=== PATIENT | male | born 1985 | race Caucasian/White ===

== ENCOUNTER 2018-08-20 17:09 | Emergency (ER) | payer MEDICAID, SELFPAY ==
[2018-08-20 17:21] VITALS: BP 153/80; PULSE 84; RESP 16; TEMP 36.8; O2SAT 98
--- NOTE | 2018-08-20 18:15 | W.ED.GENAD ---
Discharge Plan Disposition Patient Disposition: HOME Condition: Improving Discharge Details Chief Complaint: EyeProblem Clinical Impression: Corneal abrasion, left Primary Care Provider: Kristen Noland ED Provider: Chuck Roach Home Meds and New Rx's Prescriptions: No Action No Known Home Meds RF: 0 Discharge Instructions Instructions: Corneal Abrasion (ED) Additional Instructions: Erythromycin ophthalmic ointment to left eye 4 times daily. [facility] for a follow-up appointment in 2-3 days time to ensure healing of your left corneal abrasion which was in the inferior portion of your axis of vision. Plan to the emergency department for any acute concern Medical Decision Making 33-year-old male presents with left eye foreign object. Was given topical anesthetic, the eye was irrigated and then examined with a slit lamp on the floor seen. Negative Shiloh sign. Metallic foreign object removed with resultant small corneal abrasion. I will place on erythromycin ointment. 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 HPI General Mode of arrival: ambulatory. Date/Time Provider Initiated Documentation: 08/20/18 17:16. Limitations to Documentation: no limitations. Information obtained by: patient. History of Present Illness 33 year old M presents to the emergency department with the chief complaint of Left eye foreign body, described as moderate, Quality is described as aching, and is localized to the left (eye). Patient reports no radiation. Patient started experiencing this minute(s) and it has been constant. No relieving factors improve symptom(s), No exacerbating factors reported . Patient notes no other symptoms.. Patient did receive the following treatments prior to arrival, none Related Data Home Medications Medication Instructions Recorded Confirmed Unknown [No Known Home Meds] 08/20/18 08/20/18 Allergies Allergy/AdvReac Type Severity Reaction Status Date / Time No Known Allergies Allergy Unverified 05/13/16 10:46 General Stated Complaint: EyeProblem FRANTZ: 4 Review of Systems Review of Systems 6 systems reviewed and otherwise - [facility] Social History Smoking/Tobacco Use Status: Current every day Exam Narrative Exam Narrative: GEN: awake, alert, oriented 3. Pleasant, well groomed, interactive. HEAD: Normocephalic, atraumatic ENT: Mucous membranes moist, oropharynx unremarkable, External ear exam unremarkable EYES: PERRL, EOMI. left eye has a metallic foreign object embedded in the cornea and the inferior portion of the axis of vision. Negative Shiloh sign NECK: Full ROM, no MIKE, no menigismus CARDIOVASCULAR: RRR, no murmur, rub florentin. 2+ Rad pulse bilateral Neuro: Grossly normal neurologic exam, conversant, interactive. Psych: Speech fluent, thoughts congruent, affect normal Course Vital Signs Temperature 36.8 C 08/20/18 17:21 Pulse 84 08/20/18 17:21 Respiratory Rate 16 08/20/18 17:21 Blood Pressure 153/80 H 08/20/18 17:21 Pulse Oximetry 98 08/20/18 17:21 Temperature 36.8 C 08/20/18 17:21 Temperature Source Skin 08/20/18 17:21 Pulse 84 08/20/18 17:21 Respiratory Rate 16 08/20/18 17:21 Respiratory Effort 08/20/18 17:27 Blood Pressure 153/80 H 08/20/18 17:21 Blood Pressure Position Sitting 08/20/18 17:21 Pulse Oximetry 98 08/20/18 17:21 Oxygen Delivery Method Room Air 08/20/18 17:21 Oxygen Flow Rate 0 08/20/18 17:21 Pain Level 0 08/20/18 17:21
--- NOTE | 2018-08-20 18:20 | ED.GENADUL_ITS ---
Discharge Plan Disposition Patient Disposition: HOME Condition: Improving Discharge Details Chief Complaint: EyeProblem Clinical Impression: Corneal abrasion, left Primary Care Provider: Kristen Noland ED Provider: Chuck Roach Home Meds and New Rx's Prescriptions: No Action No Known Home Meds RF: 0 Discharge Instructions Instructions: Corneal Abrasion (ED) Additional Instructions: Erythromycin ophthalmic ointment to left eye 4 times daily. [facility] call [facility] for a follow-up appointment in 2-3 days time to ensure healing of your left corneal abrasion which was in the inferior portion of your axis of vision. Plan to the emergency department for any acute concern Medical Decision Making 33-year-old male presents with left eye foreign object. Was given topical anesthetic, the eye was irrigated and then examined with a slit lamp on the floor seen. Negative Hsiloh sign. Metallic foreign object removed with resultant small corneal abrasion. I will place on erythromycin ointment. 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 HPI General Mode of arrival: ambulatory . Date/Time Provider Initiated Documentation: 08/20/18 17:16 . Limitations to Documentation: no limitations . Information obtained by: patient . History of Present Illness 33 year old M presents to the emergency department with the chief complaint of Left eye foreign body, described as moderate, Quality is described as aching, and is localized to the left (eye). Patient reports no radiation. Patient started experiencing this minute(s) and it has been constant. No relieving factors improve symptom(s), No exacerbating factors reported . Patient notes no other symptoms.. Patient did receive the following treatments prior to arrival, none Related Data Home Medications Medication Instructions Recorded Confirmed Unknown [No Known Home Meds] 08/20/18 08/20/18 Allergies Allergy/AdvReac Type Severity Reaction Status Date / Time No Known Allergies Allergy Unverified 05/13/16 10:46 General Stated Complaint: EyeProblem FRANTZ: 4 Review of Systems Review of Systems 6 systems reviewed and otherwise - [facility] Social History Smoking/Tobacco Use Status: Current every day Exam Narrative Exam Narrative: GEN: awake, alert, oriented 3. Pleasant, well groomed, interactive. HEAD: Normocephalic, atraumatic ENT: Mucous membranes moist, oropharynx unremarkable, External ear exam unremarkable EYES: PERRL, EOMI. left eye has a metallic foreign object embedded in the cornea and the inferior portion of the axis of vision. Negative Shiloh sign NECK: Full ROM, no MIKE, no menigismus CARDIOVASCULAR: RRR, no murmur, rub florentin. 2+ Rad pulse bilateral Neuro: Grossly normal neurologic exam, conversant, interactive. Psych: Speech fluent, thoughts congruent, affect normal Course Vital Signs Temperature 36.8 C 08/20/18 17:21 Pulse 84 08/20/18 17:21 Respiratory Rate 16 08/20/18 17:21 Blood Pressure 153/80 H 08/20/18 17:21 Pulse Oximetry 98 08/20/18 17:21 Temperature 36.8 C 08/20/18 17:21 Temperature Source Skin 08/20/18 17:21 Pulse 84 08/20/18 17:21 Respiratory Rate 16 08/20/18 17:21 Respiratory Effort 08/20/18 17:27 Blood Pressure 153/80 H 08/20/18 17:21 Blood Pressure Position Sitting 08/20/18 17:21 Pulse Oximetry 98 08/20/18 17:21 Oxygen Delivery Method Room Air 08/20/18 17:21 Oxygen Flow Rate 0 08/20/18 17:21 Pain Level 0 08/20/18 17:21
[2018-08-20] MEDS: Fluorescein STRIPS 100/BOX 1 MG OP (18:23)
[2018-08-20] MEDS: Erythromycin Ophth Oint 3.5 GM TUBE OP (18:24)
[2018-08-20] MEDS: Tetracaine 0.5% 4 ML BTL OP (18:24)
[2018-08-20] MEDS: Balanced Salt Solution 15 ML BTL OP (18:24)
== END 2018-08-20 18:31 | disposition home or self-care (01) ==
PROVIDERS: Emergency Provider Emergency Medicine; PCP Family Medicine
DX: S05.02XA Injury of conjunctiva and corneal abrasion without foreign body, left eye, initial encounter (principal); T15.02XA Foreign body in cornea, left eye, initial encounter
CPT/HCPCS: 65222

== ENCOUNTER 2022-08-25 08:07 | Emergency (ER) | payer MEDICAID, SELFPAY ==
[2022-08-25 08:13] VITALS: BP 156/98; PULSE 80; RESP 18; TEMP 37.2; O2SAT 99
--- NOTE | 2022-08-25 08:42 | W.ED.GENAD ---
Discharge Plan Disposition Patient Disposition: Home Condition: Stable Discharge Details Clinical Impression: Acute torticollis Primary Care Provider: Kristen Noland ED Provider: Jeronimo Win Home Meds and New Rx's Prescriptions: New cyclobenzaprine 10 mg tablet 10 mg PO TID PRN (Reason: muscle spasm) Qty: 20 0RF Discharge Instructions Instructions: Spasmodic Torticollis (ED) Additional Instructions: Please allow 8 hours before taking any further ibuprofen/Motrin due to the pain shot that you received today. You may continue to take [id number] pain medication including acetaminophen and ibuprofen as discussed otherwise. Please be cautious with the muscle relaxer as this may make you sleepy or drowsy so no operating heavy machinery, driving vehicles, using firearms while on this medication. If you develop any new or worsening symptoms please return to the emergency department otherwise follow-up with your primary care provider for reassessment if not improving in the next week. Referrals: Kristen Noland MD [Primary Care Provider] - 1 week (If not improving) Discharge Data Discharge Date/Time-TO BE ENTERED AT DEPARTURE: 08/25/22 09:04 Medical Decision Making Patient presenting to the emergency department for chief complaint of neck pain. Patient states muscular type injury that occurred a couple years ago after lifting something heavy and going up a ladder. He reports that he must of slept on his neck wrong on Friday and has had pain and difficulty rotating his head to the left since. He does state some radiation of pain into the shoulder blade and arm but denies any numbness or tingling, weakness, or other symptoms. Physical exam shows muscular tenderness to the lower cervical spine and around the scapular area. No vertebral body tenderness, negative Spurling, no extremity weakness no loss of sensation or sensory deficit. I do not feel that advanced imaging is needed on an emergency basis so we will treat patient's pain with NSAIDs and Flexeril. Did recommend that patient see primary care provider if not improving or to return for any new or significant worsening of symptoms. After discussion of diagnosis and plan of care patient has no further needs, questions, or concerns and states clear understanding to return to the emergency department for any worsening symptoms. This documentation was generated using [employer] system, please disregard any oddities of phrase or misspellings. HPI General Mode of arrival: ambulatory. Date/Time Provider Initiated Documentation: 08/25/22 08:16. Limitations to Documentation: no limitations. Information obtained by: patient and RN notes reviewed. History of Present Illness 37 year old M presents to the emergency department with the chief complaint of neck pain , described as severe, with intensity rated at 10. Quality is described as sharp, and is localized to the neck. Patient extremity. Patient started experiencing this day(s) (3) and it has been constant. Immobilization improves symptom(s), Movement worsens symptoms . Patient notes no other symptoms.. Patient did receive the following treatments prior to arrival, other (Acetaminophen) Related Data Home Medications Medication Instructions Recorded Confirmed cyclobenzaprine 10 mg tablet 10 mg PO TID PRN muscle spasm #20 08/25/22 tabs Previous Rx's Medication Instructions Recorded cyclobenzaprine 10 mg tablet 10 mg PO TID PRN muscle spasm #20 08/25/22 tabs Allergies Allergy/AdvReac Type Severity Reaction Status Date / Time No Known Allergies Allergy Unverified 08/25/22 08:16 General Stated Complaint: Nk/Back Pain FRANTZ: 4 Review of Systems Narrative: 6 systems reviewed and unremarkable except what is marked below. Constitutional Constitutional: Denies headache(s) and Denies weakness ENT Ears, Nose, Mouth, and Throat: Denies headache(s) and Reports neck pain Musculoskeletal Musculoskeletal: Reports as per HPI, Denies back pain, Reports muscle cramps and Reports neck pain Neurologic Neurologic: Denies headache(s), Denies sensory deficit, Denies paresthesias and Denies weakness PFSH All Active Problems (Updated 08/25/22 @ 08:47 by Jeronimo Win NP) Acute torticollis (Acute) Social History Smoking/Tobacco Use Status: Current every day Tobacco Type: smokeless tobacco Smoking risk assessment performed?: Yes Alcohol Intake: current Alcohol Intake frequency: a few times a week Alcohol type: beer Drug use: Never Do you feel safe at home: Yes Do you feel safe in your relationship?: Yes Exam Const General: cooperative, no acute distress and not ill appearing Orientation: alert, awake and oriented x3 HENMT Head: normal to inspection, normocephalic and atraumatic Neck Neck: normal visual inspection, no meningeal signs and torticollis Resp Effort & Inspection: normal respiratory effort, able to speak in complete sentences and no respiratory distress Auscultation: clear to auscultation bilaterally Cardio Rate: regular rate Rhythm: regular rhythm Heart Sounds: S1 normal and S2 normal Back/Spine/Pelvis Cervical Spine: normal cervical lordosis, cervical muscular tenderness, pain with cervical ROM, cervical spasm, No cervical spinal tenderness, No step off deformity and cervical ROM abnormal Skin General skin exam: no rashes or lesions noted Neuro General: patient alert, patient awake, patient oriented x3, moves all extremities and no focal motor deficits Sensory Exam: no sensory deficits noted Course Vital Signs Vital signs: Vital Signs Temperature 37.2 C 08/25/22 08:13 Pulse 80 08/25/22 08:13 Respiratory Rate 18 08/25/22 08:13 Blood Pressure 156/98 H 08/25/22 08:13 Pulse Oximetry 99 08/25/22 08:13 Temperature 37.2 C 08/25/22 08:13 Temperature Source Temporal Artery Scan 08/25/22 08:13 Pulse 80 08/25/22 08:13 Respiratory Rate 18 08/25/22 08:13 Respiratory Effort Non-Labored 08/25/22 08:17 Blood Pressure 156/98 H 08/25/22 08:13 Blood Pressure Position Sitting 08/25/22 08:13 Pulse Oximetry 99 08/25/22 08:13 Oxygen Delivery Method Room Air 08/25/22 08:13 Oxygen Flow Rate 0 08/25/22 08:13 Pain Level 10 08/25/22 08:19 PAWSS Have you Been Recently Intoxicated or Drunk Within the Last 30 days?: No Have you Ever Experienced Previous Episodes of Alcohol Withdrawal?: No Have you ever Experienced Withdrawal Seizures?: No Have you ever Experienced Delirium Tremens(DT)s?: No Have you ever undergone Alcohol Rehabilitation Treatment (i.e, inpt ot outpatient treatment programs)?: No Have you ever Experienced Blackouts?: No Have you ever Combined Alcohol with other Downers within the last 90 days?: No Have you ever Combined Alcohol with any other Substance of Abuse during the last 90 days?: No Positive Blood Alcohol level on Presentation? [PCS.BAL]: No Evidence of Increased Autonomic Activity (i.e. HR>120, tremor, sweating, agitation, nausea)?: No Result: 0
[2022-08-25] MEDS: Cyclobenzaprine 10 MG TAB PO (09:04)
[2022-08-25] MEDS: Ibuprofen 600 MG TAB, 6 TABS/BTL PO (09:05)
[2022-08-25] MEDS: Ketorolac 30 MG/ML VIAL IM (09:05)
[2022-08-25] MEDS: Cyclobenzaprine 10 MG TAB, 3 TABS/BTL PO (09:05)
== END 2022-08-25 09:04 | disposition home or self-care (01) ==
PROVIDERS: Emergency Provider Nurse Practitioner Family; PCP Family Medicine
DX: M43.6 Torticollis (principal)
CPT/HCPCS: 96372; 99284; 99283; J1885

== ENCOUNTER 2022-08-26 10:15 | Emergency (ER) | payer MEDICAID, SELFPAY ==
[2022-08-26 10:16] VITALS: BP 168/97; PULSE 96; RESP 17; TEMP 37; O2SAT 99
--- NOTE | 2022-08-26 10:32 | ED.GENADUL_ITS ---
Discharge Plan Disposition Patient Disposition: Home Condition: Stable Discharge Details Clinical Impression: Cervical myofascial strain Primary Care Provider: Kristen Noland ED Provider: Ivon Chang Home Meds and New Rx's Prescriptions: New prednisone 20 mg tablet See Rx Instructions .ROUTE .COMPLEX Qty: 18 0RF Rx Instructions: Take 3 tabs daily for 3 days, then 2 tabs daily for 3 days, then 1 tab daily for 3 days. diazepam 5 mg tablet 5 mg PO TID PRN (Reason: muscle spasm) Qty: 10 0RF Discontinued cyclobenzaprine 10 mg tablet 10 mg PO TID PRN (Reason: muscle spasm) Qty: 20 0RF Discharge Instructions Instructions: Cervical Strain (ED) Additional Instructions: Your symptoms appear likely consistent with a muscle strain or spasm. Alternate ice and heat to the affected area(s) several times daily for 20 minutes at a time. Alternate tylenol and motrin as needed and directed for pain. Prescriptions for steroids and muscle relaxers have been sent electronically to your pharmacy. Call your primary care doctor's office today to schedule a follow-up appointment for reevaluation within the next week and for consideration for referral for MRI if your symptoms do not improve or worsen. Return immediately to the emergency department if you develop any worsening or new concerning symptoms such as worsening pain, extremity weakness, numbness or any other concerns. Discharge Data Discharge Physician: Ivon Chang Medical Decision Making 37-year-old male presents with neck pain for the past 4 days after carrying a heavy box of shingles at work 1 week ago. Patient seen here yesterday for same complaint and diagnosed with acute torticollis and sent home with Flexeril without relief. Blood pressure hypertensive at 168/97. Patient appears uncomfortable. He has no midline spinal tenderness but does have left-sided cervical paraspinal tenderness and pain that is reproducible mostly in the left side of the neck with extension, left head rotation and left sidebending. He has no focal deficits and is neurovascularly intact. Suspect muscle strain or spasm. Do not see an indication for urgent labs or imaging. Patient drove himself here. Will treat with steroids and muscle relaxers. He was given a dose of prednisone here and a dose of Valium to go. Prescriptions for prednisone and Valium sent electronically to his pharmacy. He was advised to call his PCP today or tomorrow for follow-up and for consideration for referral for outpatient MRI if indicated. Usual and customary return precautions given prior to discharge. Medical Records Medical records reviewed: Yes I reviewed the patient's medical records. HPI General Mode of arrival: ambulatory . Date/Time Provider Initiated Documentation: 08/26/22 10:15 . Limitations to Documentation: no limitations . Information obtained by: patient . HPI Narrative: Patient is a 37-year-old male who presents with neck pain for the past 4 days. Pt states he awoke with the pain 4 days ago with pain in the lower neck, worse on the left side. He states pain is worse with movement of his head and left arm. Patient states he has radiation of pain that occurs when he moves his head to the left and states it radiates to his left shoulder. Patient was seen here yesterday for the same complaint and was prescribed Flexeril which she states he took today in addition to Tylenol and ibuprofen 3 hours ago without relief. Patient states he was carrying a heavy box of shingles approximately 80lb 1 week ago on his left shoulder. He denies any fever, chest pain, difficulty breathing or abdominal pain. Related Data Home Medications Medication Instructions Recorded Confirmed diazepam 5 mg tablet 5 mg PO TID PRN muscle spasm #10 08/26/22 tabs prednisone 20 mg tablet See Rx Instructions .Route 08/26/22 .COMPLEX #18 tabs Previous Rx's Medication Instructions Recorded diazepam 5 mg tablet 5 mg PO TID PRN muscle spasm #10 08/26/22 tabs prednisone 20 mg tablet See Rx Instructions .Route 08/26/22 .COMPLEX #18 tabs Allergies Allergy/AdvReac Type Severity Reaction Status Date / Time No Known Allergies Allergy Unverified 08/26/22 10:22 General Stated Complaint: Nk/Back Pain FRANTZ: 4 Review of Systems All systems reviewed & are unremarkable except as noted in HPI and below Constitutional Constitutional: Reports as per HPI, Denies chills and Denies fever(s) Eyes Eyes: Denies blurry vision ENT Ears, Nose, Mouth, and Throat: Denies dizziness, Reports neck pain, Denies sore throat and Denies throat swelling Cardiovascular Cardiovascular: Denies chest pain and Denies dyspnea Respiratory Respiratory: Denies cough and Denies dyspnea Gastrointestinal Gastrointestinal: Denies abdominal pain, Denies diarrhea and Denies vomiting Genitourinary Genitourinary: Denies hematuria and Denies dysuria Musculoskeletal Musculoskeletal: Denies back pain, Reports neck pain and Denies numbness Integumentary/Breasts Skin/Breast: Denies lesions and Denies rash Neurologic Neurologic: Denies dizziness, Denies localized weakness and Denies numbness Allergic/Immunologic Allergic/Immunologic: Denies throat swelling PFSH All Active Problems (Updated 08/26/22 @ 10:50 by Ivon Chang DO) Cervical myofascial strain (Acute) Acute torticollis (Acute) Medical History (Updated 08/26/22 @ 10:50 by Ivon Chang DO) No significant past medical history Surgical History (Updated 08/26/22 @ 10:46 by Ivon Chang DO) No significant past surgical history Social History Smoking/Tobacco Use Status: Current every day Tobacco Type: smokeless tobacco Smoking risk assessment performed?: Yes Alcohol Intake: current Alcohol Intake frequency: a few times a week Alcohol type: beer Drug use: Never Substance use type: does not use Do you feel safe at home: Yes Do you feel safe in your relationship?: Yes Exam Const General: cooperative and uncomfortable Orientation: alert, awake and oriented x3 HENMT Head: normal to inspection Mouth: oral mucosae normal Eyes General: appearance normal, both eyes and all related structures Neck Neck: normal visual inspection Resp Effort & Inspection: normal respiratory effort and able to speak in complete sentences Auscultation: clear to auscultation bilaterally Cardio Rate: regular rate Rhythm: regular rhythm Back/Spine/Pelvis Cervical Spine: No cervical spinal tenderness Thoracic/Lumbar Spine: No thoracic spinal tenderness Other: Minimal tenderness to palpation to left cervical paraspinal region. Pain in lower cervical region reproducible with extension, left head rotation and left sidebending. Area appears normal to inspection without trauma, cellulitis or rash. Skin General skin exam: no rashes or lesions noted Neuro General: patient alert, patient awake and patient oriented x3 Motor: muscle tone normal throughout and strength 5/5 throughout Other: Muscle strength 5/5 bilateral upper extremities. Normal motor function and grossly normal sensory function in the distribution of biceps/triceps as radian/ulnar/median nerve. Extrem General: normal to inspection and full ROM Other: B/L radial and ulnar pulses intact. Psych Appearance: grossly normal Affect: normal affect Course Vital Signs Vital signs: Vital Signs Temperature 98.6 F 08/26/22 10:16 Pulse 96 H 08/26/22 10:16 Respiratory Rate 17 08/26/22 10:16 Blood Pressure 168/97 H 08/26/22 10:16 Pulse Oximetry 99 08/26/22 10:16 Temperature 98.6 F 08/26/22 10:16 Temperature Source Temporal Artery Scan 08/26/22 10:16 Pulse 96 H 08/26/22 10:16 Respiratory Rate 17 08/26/22 10:16 Respiratory Effort Non-Labored 08/26/22 10:19 Blood Pressure 168/97 H 08/26/22 10:16 Pulse Oximetry 99 08/26/22 10:16 Oxygen Delivery Method Room Air 08/26/22 10:16 Oxygen Flow Rate 0 08/26/22 10:16 Pain Level 10 08/26/22 10:19 PAWSS Have you Been Recently Intoxicated or Drunk Within the Last 30 days?: No Have you Ever Experienced Previous Episodes of Alcohol Withdrawal?: No Have you ever Experienced Withdrawal Seizures?: No Have you ever Experienced Delirium Tremens(DT)s?: No Have you ever undergone Alcohol Rehabilitation Treatment (i.e, inpt ot outpatient treatment programs)?: No Have you ever Experienced Blackouts?: No Have you ever Combined Alcohol with other Downers within the last 90 days?: No Have you ever Combined Alcohol with any other Substance of Abuse during the last 90 days?: No Result: 0
[2022-08-26] MEDS: predniSONE 20 MG TAB 60 MG PO (10:52)
[2022-08-26] MEDS: diazePAM 5 MG TAB PO (10:58)
--- NOTE | 2022-08-26 10:59 | NUR.NOTE ---
patient given 1 valium 5 mg tablet to take when he gets home, this was dispensed due tot he patient needing to drive himself home, approved by [facility].
== END 2022-08-26 11:17 | disposition home or self-care (01) ==
PROVIDERS: Emergency Provider Physician Assistant; PCP Family Medicine
DX: S16.1XXA Strain of muscle, fascia and tendon at neck level, initial encounter (principal); X58.XXXA Exposure to other specified factors, initial encounter; R03.0 Elevated blood-pressure reading, without diagnosis of hypertension
CPT/HCPCS: 99283; 99284; J7512

== ENCOUNTER 2022-08-30 15:52 | Outpatient (REF) | payer MEDICAID, SELFPAY ==
[2022-08-30 18:38] LABS: Cholesterol 170 mg/dL (<200); HDL Cholesterol 55 mg/dL (40-60); Triglyceride 463 mg/dL (<150)
[2022-08-30 18:49] LABS: Hemoglobin A1C 5.6 % (<5.7)
[2022-08-30 18:50] LABS: LDL CHOLESTEROL 67 mg/dL (<100)
[2022-09-02 09:06] LABS: Hepatitis C Ab w Rflx HCV PCR Negative (Negative)
[2022-09-02 09:49] LABS: HIV-1/2 Ag & Ab Screen Negative (Negative)
== END 2022-08-30 15:53 | disposition home or self-care (01) ==
LOC: NCHCN 15:52
PROVIDERS: PCP Family Medicine; Visit Provider Family Medicine
DX: Z13.1 Encounter for screening for diabetes mellitus (principal); Z11.4 Encounter for screening for human immunodeficiency virus [HIV]; Z11.59 Encounter for screening for other viral diseases; Z13.220 Encounter for screening for lipoid disorders; Z00.00 Encounter for general adult medical examination without abnormal findings
CPT/HCPCS: 80061; 83721; 86803; 87389; 83036

== ENCOUNTER 2022-10-24 02:02 | Outpatient (CLI) | payer MEDICAID, SELFPAY ==
--- NOTE | 2022-10-24 | DI.MRI_ITS ---
Exam(s) MR CERVICAL SPINE WO EXAM: MR CERVICAL SPINE WO CLINICAL HISTORY: NECK PAIN M54.2 CERVICAL RADICULOPATHY M54.12 TECHNIQUE: Multiplanar multisequence MRI of the cervical spine was performed without intravenous con trast. COMPARISON: No exams were available for comparison FINDINGS: BONES: Vertebral body heights are maintained. Intervertebral disc spaces are normal. Alignment is nor mal. Bone marrow signal intensity is within normal limits. CERVICAL CORD: Craniovertebral junction is unremarkable. The cervical cord is normal size and signal intensity. SOFT TISSUES: Unremarkable. C2-3: No disc herniation or bulge is identified. No significant central spinal canal or neural forami nal stenosis. C3-4: No disc herniation or bulge is identified. No significant central spinal canal or neural forami nal stenosis C4-5: There is prominence of the right uncovertebral joint causing [id number] narrowing of the right neural foramen. No significant central spinal canal or left neural foraminal stenosis is seen. C5-6: There is mild prominence of the osteophyte disc complex. No significant central spinal canal o r neural foraminal stenosis C6-7: There is a left lateral disc herniation causing moderate to severe left neural foraminal stenos is. No significant central spinal canal or right neural foraminal stenosis is present. C7-T1: No disc herniation or bulge is identified. No significant central spinal canal or neural triny inal stenosis IMPRESSION: 1. Left lateral disc herniation at C6-C7 causing moderate to severe left neural foraminal stenosis. 2. Degenerative changes at C4-5 on the right causing right neural foraminal stenosis which is mild-to -moderate. 3. Multilevel degenerative changes in the cervical spine. DATA REPOSITORY:
== END 2022-10-24 02:22 ==
LOC: DI 02:02
PROVIDERS: PCP Family Medicine; Visit Provider Nurse Practitioner Family
DX: M54.2 Cervicalgia (principal); M54.12 Radiculopathy, cervical region; M50.223 Other cervical disc displacement at C6-C7 level; M50.321 Other cervical disc degeneration at C4-C5 level; M47.22 Other spondylosis with radiculopathy, cervical region
CPT/HCPCS: 72141

== ENCOUNTER 2023-12-31 11:20 | Emergency (ER) | payer MEDICAID, SELFPAY ==
[2023-12-31 11:23] VITALS: BP 130/90; PULSE 89; RESP 16; TEMP 36.5; O2SAT 99
--- NOTE | 2023-12-31 11:34 | ED.GENADUL_ITS ---
Discharge Plan Disposition Patient Disposition: Home Condition: Stable Discharge Details Clinical Impression: Left ankle sprain Primary Care Provider: Kristen Noland ED Provider: Cleveland Woodson Home Meds and New Rx's Prescriptions: No Action No Known Home Meds Discharge Instructions Instructions: Ankle Sprain (ED) Additional Instructions: Follow-up with your primary care provider if not improving within 1 week You can take 1000 mg of Tylenol and 600 mg of ibuprofen every 6 hours as needed If you feel more ill or have new symptoms such as difficulty breathing return to the emergency department for reevaluation HPI General Mode of arrival: ambulatory . Date/Time Provider Initiated Documentation: 12/31/23 11:21 . Limitations to Documentation: no limitations . Information obtained by: patient . History of Present Illness 38 year old M presents to the emergency department with the chief complaint of Left ankle pain, described as moderate, Quality is described as aching, and is localized to the left and lower extremity. Patient reports no radiation. and it has been constant. No relieving factors improve symptom(s), No exacerbating factors reported . Patient notes no other symptoms.. Patient did receive the following treatments prior to arrival, none Related Data Home Medications Medication Instructions Recorded Confirmed Unknown [No Known Home Meds] 12/31/23 12/31/23 Allergies Allergy/AdvReac Type Severity Reaction Status Date / Time No Known Allergies Allergy Unverified 12/31/23 11:27 General Stated Complaint: Orthopedic FRANTZ: 4 Review of Systems All systems reviewed & are unremarkable except as noted in HPI and below Constitutional Constitutional: Denies chills, Denies fever(s) and Denies weakness Cardiovascular Cardiovascular: Denies chest pain and Denies dyspnea Respiratory Respiratory: Denies cough and Denies dyspnea Gastrointestinal Gastrointestinal: Denies abdominal pain, Denies nausea and Denies vomiting Musculoskeletal Musculoskeletal: Denies joint swelling Neurologic Neurologic: Denies weakness Exam Const General: no acute distress Orientation: alert HENMT Head: normal to inspection Ears: external ears normal General nose exam: external nose normal Mouth: moist mucous membranes Eyes General: appearance normal, both eyes and all related structures Neck Neck: normal visual inspection Resp Effort & Inspection: normal respiratory effort and able to speak in complete sentences Cardio Rate: regular rate Skin General skin exam: no rashes or lesions noted Neuro General: patient alert and patient oriented x3 Extrem General: full ROM and capillary refill normal Psych Mental Status: mental status grossly normal Course Vital Signs Vital signs: Vital Signs Temperature 36.5 C 12/31/23 11:23 Pulse 89 12/31/23 11:23 Respiratory Rate 16 12/31/23 11:23 Blood Pressure 130/90 12/31/23 11:23 Pulse Oximetry 99 12/31/23 11:23 Temperature 36.5 C 12/31/23 11:23 Temperature Source Temporal Artery Scan 12/31/23 11:23 Pulse 89 12/31/23 11:23 Respiratory Rate 16 12/31/23 11:23 Respiratory Effort Normal, Non-Labored 12/31/23 11:27 Blood Pressure 130/90 12/31/23 11:23 Blood Pressure Position Sitting 12/31/23 11:23 Pulse Oximetry 99 12/31/23 11:23 Oxygen Delivery Method Room Air 12/31/23 11:23 Oxygen Flow Rate 0 12/31/23 11:23 Pain Level 8 12/31/23 11:23 Comment 4 chewable kids tyl this AM 12/31/23 11:23 Medical Decision Making 38-year-old male who denies any chronic medical problems comes in with left ankle pain. He says he was walking at work about a week ago when he put his foot on a rock and it caused him to roll his ankle, did not fall or hit his head. He had no significant pain that day but has been walking for work frequently and has progressively worsened left lateral ankle pain. He has mild swelling of the left lateral malleolus, full range of motion of the ankle, intact sensation and pulses, no tenderness in the foot does have tenderness over the lateral malleolus. No pain over the posterior ankle and when his calf is squeezed he has intact plantarflexion. No calf tenderness and no leg swelling so doubt entities such as DVT. No findings on exam to suggest an Achilles injury, suspect ankle sprain but will obtain x-rays to evaluate for fracture X-ray negative on my read, patient stable. Suspect ankle sprain, will provide crutches and a walking boot, advised to follow-up with his PCP if not improving within a week and return precautions given Differential Diagnosis Differential Diagnosis: Sprain, strain, fracture Imaging Data Radiologic Study: Attestation: I personally reviewed and interpreted this imaging study as follows: Imaging: X-Ray My impression: No acute findings Quality:SDOH Health Related Social Needs: No Data to Display PFSH All Active Problems (Updated 12/31/23 @ 12:07 by Cleveland Woodson MD) Left ankle sprain (Acute) Medical History (Updated 12/31/23 @ 12:07 by Cleveland Woodson MD) No significant past medical history Surgical History (Updated 08/26/22 @ 10:46 by Ivon Chang DO) No significant past surgical history Social History Smoking/Tobacco Use Status: Current every day Tobacco Type: smokeless tobacco Smoking risk assessment performed?: Yes Alcohol Intake: current Alcohol Intake frequency: a few times a week Alcohol type: beer Drug use: Never Substance use type: does not use Housing: house Do you feel safe at home: Yes Do you feel safe in your relationship?: Yes
[2023-12-31] MEDS: Ibuprofen 600 MG TAB PO (11:54)
--- NOTE | 2023-12-31 11:56 | DI.RAD_ITS ---
Exam(s) XR ANKLE LT COMPLETE EXAM: XR ANKLE LT COMPLETE CLINICAL HISTORY: pain TECHNIQUE: 2D digital imaging was performed. Three views. COMPARISON: No exams were available for comparison FINDINGS: BONES: No acute fracture is present. No bony destructive lesion is seen. JOINTS:The ankle mortise is normally aligned. SOFT TISSUE: Soft tissue swelling around the malleoli. IMPRESSION: Soft tissue swelling. No acute bony abnormality. DATA REPOSITORY: RADIATION DOSE DELIVERED:
[2023-12-31 12:30] VITALS: BP 130/90; PULSE 89; RESP 16; TEMP 36.5; O2SAT 99
== END 2023-12-31 12:36 | disposition home or self-care (01) ==
LOC: ER 12:12
PROVIDERS: Emergency Provider Emergency Medicine; PCP Family Medicine
DX: S93.402A Sprain of unspecified ligament of left ankle, initial encounter (principal); F17.210 Nicotine dependence, cigarettes, uncomplicated; X50.1XXA Overexertion from prolonged static or awkward postures, initial encounter; Y93.01 Activity, walking, marching and hiking; Y92.89 Other specified places as the place of occurrence of the external cause; Y99.0 Civilian activity done for income or pay
CPT/HCPCS: 99283; 73610

== ENCOUNTER 2024-03-03 17:38 | Outpatient (REF) | payer MEDICAID, SELFPAY ==
--- OUTSIDE RECORDS SUMMARY | 2024-03-03 17:39 | XMS_ITS | Continuity of Care Document ---
Author Name Unknown Organization [facility] Ambulatory Clinics Address [address] [place] [address] Care Team Providers Care Systems Support Specialist Name Role Phone SIOMARA AGUILAR MD Primary Care Physician Encounter [facility] NBR [id number] Date(s): 11/07/22 - 11/07/22 [facility] [address] [place] [address] Encounter Diagnosis Cervical disc disorder with radiculopathy(Discharge Diagnosis) - 11/07/22 Cervical spondylosis(Discharge Diagnosis) - 11/07/22 Radiculopathy, cervical region(Final) - Discharge Disposition: Home or Self Care Attending Physician: RAFAELA CLANCY Referring Physician: RAFAELA CLANCY Allergies, Adverse Reactions, Alerts No Known Allergies Functional Status 11/07/22 Other exposure to Infectious Disease Non e Medications nabumetone 500 mg oral tablet 500 mg = 1 tab, Oral, BID, PRN pain, 0 Refill(s) Start Date: 11/07/22 Status: Ordered tiZANidine 4 mg oral capsule 4 mg = 1 cap, Oral, every 8 hr, PRN muscle pain, 0 Refill(s) Start Date: 11/07/22 Status: Ordered Problem List Condition Confirmation Course Effective Dates Status H ealt Status Informant Flat feet Confirmed Active Cervical disc disorder with radiculopathy Confirmed Active Cervical radiculopathy Confirmed Active Cervical spondylosis Confirmed Active Chronic low back pain Confirmed Active Neck pain, chronic Confirmed Active History of opioid abuse Confirmed Active High blood pressure Confirmed Active Tinea cruris Confirmed Active Tobacco dependency Confirmed Active Vital Signs Most recent to oldest [Reference Range]: 1 Peripheral Pulse Rate [60-100 bpm] 74 bp m (11/07/22 12:20 PM) Respiratory Rate [12-24 br/min] 18 br/mi n (11/07/22 12:20 PM) Blood Pressure [90-140/60-90 mmHg] 114/7 0mmHg (11/07/22 12:20 PM) Weight 108.41 kg (11/07/22 12:20 PM) Weight Measured (lbs) 239.003 lb (11/07/22 12:20 PM) [place] Body Weight Calculated 68.4 kg (11/07/22 12:20 PM) Height 172.72 cm (11/07/22 12:20 PM) Height/Length Measured (inches) 68 inch (11/07/22 12:20 PM) BSA Measured 2.28 m2 (11/07/22 12:20 PM) Body Mass Index 36.34 kg/m2 (11/07/22 12:20 PM) Social History Social History Type Response Tobacco Former tobacco user Tobacco Use:. Stopped in january. Used to smoke a pack per day. per day. 1 Sex 1States he quit approximately a year ago 11/2021 Patient Care team information Care Team Personnel Name: SIOMARA AGUILAR MD Position: No Access Member Role: Primary Care Physician Address: Address: [address] [place] [id number] [place] [address] Care Team Related Persons Name: PHUC SWANSON
--- OUTSIDE RECORDS SUMMARY | 2024-03-03 17:39 | XMS_ITS | Continuity of Care Document ---
Author Name Unknown Organization [facility] Address [address] [place] [id number] Care Team Providers Care Kitchen Assistant Name Role Phone SIOMARA GODDARD Primary Care Physician Encounter LTTL_NE FIN NBR [id number] Date(s): 09/04/22 - 09/04/[address] [id number]- Encounter Diagnosis Cervical radiculopathy(Discharge Diagnosis) - 09/04/22 Discharge Disposition: Home f/u Internal Provider Attending Physician: Cesar Johnston DO Admitting Physician: Cesar Johnston DO Functional Status 09/04/22 Other exposure to Infectious Disease Non e Medications predniSONE 20 mg oral tablet 40 mg = 2 tab, Oral, Daily, # 10 tab, 0 Refill(s) Start Date: 09/04/22 Stop Date: 09/09/22 Status: Ordered Valium 5 mg oral tablet 5 mg = 1 tab, Oral, every 8 hr, # 10 tab, 0 Refill(s) Start Date: 09/04/22 Stop Date: 09/07/22 Status: Ordered Problem List No Known Problems Vital Signs Most recent to oldest [Reference Range]: 1 Temperature Tympanic [36.6-37.9 Deg C] 3 6.3 Deg C *LOW* (09/04/22 1:48 PM) Peripheral Pulse Rate [60-100 bpm] 89 bp m (09/04/22 1:48 PM) Blood Pressure [90-140/60-90 mmHg] 159/9 5mmHg *HI* (09/04/22 1:48 PM) Weight Dosing 104.33 kg (09/04/22 2:07 PM) Weight Estimated 104.33 kg (09/04/22 1:48 PM) Height/Length Dosing 172.720 cm (09/04/22 2:07 PM) Height/Length Estimated 172.720 cm (09/04/22 1:48 PM) Social History Social History Type Response Tobacco Former tobacco user Tobacco Use:. Stopped in january. Used to smoke a pack per day. per day. Sex Hospital Discharge Instructions Patient Education 09/04/2022 13:24:46 Cervical Radiculopathy Cervical Radiculopathy Cervical radiculopathy happens when a nerve in the neck (a cervical nerve) is pinched or bruised. This condition can happen because of an injury to the cervical spine (vertebrae) in the neck, or as part of the normal aging process. Pressure on the cervical nerves can cause pain or numbness that travels from the neck all the way down into the arm and fingers. Usually, this condition gets better with rest. Treatment may be needed if the condition does not improve. What are the causes? This condition may be caused by: ??? A neck injury. ??? A bulging (herniated) disk. ??? Muscle spasms. ??? Muscle tightness in the neck because of overuse. ??? Arthritis. ??? Breakdown or degeneration in the bones and joints of the spine (spondylosis) due to aging. ??? Bone spurs that may develop near the cervical nerves. What are the signs or symptoms? Symptoms of this condition include: ??? Pain. The pain may travel from the neck to the arm and hand. The pain can be severe or irritating. It may be worse when you move your neck. ??? Numbness or tingling in your arm or hand. ??? Weakness in the affected arm and hand, in severe cases. How is this diagnosed? This condition may be diagnosed based on your symptoms, your medical history, and a physical exam. You may also have tests, including: ??? X-rays. ??? A CT scan. ??? An MRI. ??? An electromyogram (EMG). ??? Nerve conduction tests. How is this treated? In many cases, treatment is not needed for this condition. With rest, the condition usually gets better over time. If treatment is needed, options may include: ??? Wearing a soft neck collar (cervical collar) for short periods of time, as told by your health care provider. ??? Doing physical therapy to strengthen your neck muscles. ??? Taking medicines, such as NSAIDs or oral corticosteroids. ??? Having spinal injections, in severe cases. ??? Having surgery. This may be needed if other treatments do not help. Different types of surgery may be done depending on the cause of this condition. Follow these instructions at home: If you have a cervical collar: ??? Wear it as told by your health care provider. Remove it only as told by your health care provider. ??? Ask your health care provider if you can remove the collar for cleaning and bathing. If you areallowed to remove the collar for cleaning or bathing: ??? Follow instructions from your health care provider about how to remove the collar safely. ??? Clean the collar by wiping it with mild soap and water and drying it completely. ??? Take out any removable pads in the collar every 1???2 days, and wash them by hand with soap andwater. Let them air-dry completely before you put them back in the collar. ??? Check your skin under the collar for irritation or sores. If you see any, tell your health careprovider. Managing pain ??? Take etea-rci-xtiotgs and prescription medicines only as told by your health care provider. ??? If directed, put ice on the affected area. ??? If you have a soft neck collar, remove it as told by your health care provider. ??? Put ice in a plastic bag. ??? Place a towel between your skin and the bag. ??? Leave the ice on for 20 minutes, 2???3 times a day. ??? If applying ice does not help, you can try using heat. Use the heat source that your health care provider recommends, such as a moist heat pack or a heating pad. ??? Place a towel between your skin and the heat source. ??? Leave the heat on for 20???30 minutes. ??? Remove the heat if your skin turns bright red. This is especially important if you are unable to feel pain, heat, or cold. You may have a greater risk of getting burned. ??? Try a gentle neck and shoulder massage to help relieve symptoms. Activity ??? Rest as needed. ??? Return to your normal activities as told by your health care provider. Ask your health care provider what activities are safe for you. ??? Do stretching and strengthening exercises as told by your health care provider or physical therapist. ??? Do not lift anything that is heavier than 10 lb (4.5 kg) until your health care provider tells you that it is safe. General instructions ??? Use a flat pillow when you sleep. ??? Do not drive while wearing a cervical collar. If you do not have a cervical collar, ask your health care provider if it is safe to drive while your neck heals. ??? Ask your health care provider if the medicine prescribed to you requires you to avoid driving or using heavy machinery. ??? Do not use any products that contain nicotine or tobacco, such as cigarettes, e-cigarettes, andchewing tobacco. These can delay healing. If you need help quitting, ask your health care provider. ??? Keep all follow-up visits as told by your health care provider. This is important. Contact a health care provider if: ??? Your condition does not improve with treatment. Get help right away if: ??? Your pain gets much worse and cannot be controlled with medicines. ??? You have weakness or numbness in your hand, arm, face, or leg. ??? You have a high fever. ??? You have a stiff, rigid neck. ??? You lose control of your bowels or your bladder (have incontinence). ??? You have trouble with walking, balance, or speaking. Summary ??? Cervical radiculopathy happens when a nerve in the neck is pinched or bruised. ??? A nerve can get pinched from a bulging disk, arthritis, muscle spasms, or an injury to the neck. ??? Symptoms include pain, tingling, or numbness radiating from the neck into the arm or hand. Weakness can also occur in severe cases. ??? Treatment may include rest, wearing a cervical collar, and physical therapy. Medicines may be prescribed to help with pain. In severe cases, injections or surgery may be needed. This information is not intended to replace advice given to you by your health care provider. Make sure you discuss any questions you have with your health care provider. Document Revised: 07/02/2019 Document Reviewed: 07/02/2019 [employer] Patient Education ?? 2021 [employer]. Follow Up Care 09/04/2022 13:48:13 With:[facility] Address: [address] [place] [phone] When:1 week only if needed Comments:It is extremely important that you get a hold your primary care physician (Dr. Goddard)??as you will likely require??MRI imaging??to evaluate for cervical impingement. ??I suspect this is as you are having??minimal motor deficit of that left hand and you are left-handed.?? We discussed many options for treatment??which are only done a Band-Aid the situation.?? We settled on Valium??3 times daily asneeded??pain and to help with sleep at night. 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 Emergency department Discharge instructions * HILLARY Alaniz: PERFORM Event Display: ED Discharge Information Authored Date: [id number] OLIVIA TORRES :1985 Age:37 years Sex:Male Visit Date:09/04/2022 Primary Care Physician: SIOMARA GODDARD Discharge Instructions We would like to thank you for allowing us to assist you with your healthcare needs. The following includes patient education materials and information regarding your injury/illness. Diagnosis from Today's Visit Cervical radiculopathy Discharge Vitals Temperature??(Tympanic) 97.3 ??F (36.3 ??C) Heart Rate??(Peripheral) 89 Blood Pressure?? 159/95?? Height?? 68.00 in (172.720 cm) Weight??(Estimated) 230.05 lb (104.33 kg) Allergies No active allergies What to Do Next You Need to Schedule the Following Appointments Follow Up with??[facility] When:??Within 1 week, only if needed Why: It is extremely important that you get a hold your primary care physician (Dr. Goddard)??as you will likely require??MRI imaging??to evaluate for cervical impingement. ??I suspect this is as you are having??minimal motor deficit of that left hand and you are left-handed.?? We discussed many options for treatment??which are only done a Band-Aid the situation.?? We settled on Valium??3 times daily as needed??pain and to help with sleep at night. 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 Where: [address] [place] [phone] You were treated today on an emergency basis; it may be tomlin to contact your primary care provider to notify them of your visit today. You may have been referred to your regular doctor or a specialist, please follow up as instructed. If your condition worsens or you can't get in to see the doctor, contact the Emergency Department. Medications What How Much When Why Instructions Next Dose New diazePAM (Valium 5 mg oral tablet) 1 tab Oral (given by mouth) Every 8 hours Cervical radiculopathy Duration: 3 Days Printed Prescription New predniSONE (predniSONE 20 mg oral tablet) 2 tab Oral (given by mouth) Every day Cervical radiculopathy Duration: 5 Days Printed Prescription Education Materials Cervical Radiculopathy Cervical radiculopathy happens when a nerve in the neck (a cervical nerve) is pinched or bruised. This condition can happen because of an injury to the cervical spine (vertebrae) in the neck, or as part of the normal aging process. Pressure on the cervical nerves can cause pain or numbness that travels from the neck all the way down into the arm and fingers. Usually, this condition gets better with rest. Treatment may be needed if the condition does not improve. What are the causes? This condition may be caused by: ? A neck injury. ? A bulging (herniated) disk. ? Muscle spasms. ? Muscle tightness in the neck because of overuse. ? Arthritis. ? Breakdown or degeneration in the bones and joints of the spine (spondylosis) due to aging. ? Bone spurs that may develop near the cervical nerves. What are the signs or symptoms? Symptoms of this condition include: ? Pain. The pain may travel from the neck to the arm and hand. The pain can be severe or irritating. It may be worse when you move your neck. ? Numbness or tingling in your arm or hand. ? Weakness in the affected arm and hand, in severe cases. How is this diagnosed? This condition may be diagnosed based on your symptoms, your medical history, and a physical exam. You may also have tests, including: ? X-rays. ? A CT scan. ? An MRI. ? An electromyogram (EMG). ? Nerve conduction tests. How is this treated? In many cases, treatment is not needed for this condition. With rest, the condition usually gets better over time. If treatment is needed, options may include: ? Wearing a soft neck collar (cervical collar) for short periods of time, as told by your health careprovider. ? Doing physical therapy to strengthen your neck muscles. ? Taking medicines, such as NSAIDs or oral corticosteroids. ? Having spinal injections, in severe cases. ? Having surgery. This may be needed if other treatments do not help. Different types of surgery may be done depending on the cause of this condition. Follow these instructions at home: If you have a cervical collar: ? Wear it as told by your health care provider. Remove it only as told by your health care provider. ? Ask your health care provider if you can remove the collar for cleaning and bathing. If you are allowed to remove the collar for cleaning or bathing: ? Follow instructions from your health care provider about how to remove the collar safely. ? Clean the collar by wiping it with mild soap and water and drying it completely. ? Take out any removable pads in the collar every 1???2 days, and wash them by hand with soap and water. Let them air-dry completely before you put them back in the collar. ? Check your skin under the collar for irritation or sores. If you see any, tell your health care provider. Managing pain ? Take gxrv-nsr-wtmvvjk and prescription medicines only as told by your health care provider. ? If directed, put ice on the affected area. ? If you have a soft neck collar, remove it as told by your health care provider. ? Put ice in a plastic bag. ? Place a towel between your skin and the bag. ? Leave the ice on for 20 minutes, 2???3 times a day. ? If applying ice does not help, you can try using heat. Use the heat source that your health care provider recommends, such as a moist heat pack or a heating pad. ? Place a towel between your skin and the heat source. ? Leave the heat on for 20???30 minutes. ? Remove the heat if your skin turns bright red. This is especially important if you are unable to feel pain, heat, or cold. You may have a greater risk of getting burned. ? Try a gentle neck and shoulder massage to help relieve symptoms. Activity ? Rest as needed. ? Return to your normal activities as told by your health care provider. Ask your health care provider what activities are safe for you. ? Do stretching and strengthening exercises as told by your health care provider or physical therapist. ? Do not lift anything that is heavier than 10 lb (4.5 kg) until your health care provider tells you that it is safe. General instructions ? Use a flat pillow when you sleep. ? Do not drive while wearing a cervical collar. If you do not have a cervical collar, ask your healthcare provider if it is safe to drive while your neck heals. ? Ask your health care provider if the medicine prescribed to you requires you to avoid driving or using heavy machinery. ? Do not use any products that contain nicotine or tobacco, such as cigarettes, e- cigarettes, and chewing tobacco. These can delay healing. If you need help quitting, ask your health care provider. ? Keep all follow-up visits as told by your health care provider. This is important. Contact a health care provider if: ? Your condition does not improve with treatment. Get help right away if: ? Your pain gets much worse and cannot be controlled with medicines. ? You have weakness or numbness in your hand, arm, face, or leg. ? You have a high fever. ? You have a stiff, rigid neck. ? You lose control of your bowels or your bladder (have incontinence). ? You have trouble with walking, balance, or speaking. Summary ? Cervical radiculopathy happens when a nerve in the neck is pinched or bruised. ? A nerve can get pinched from a bulging disk, arthritis, muscle spasms, or an injury to the neck. ? Symptoms include pain, tingling, or numbness radiating from the neck into the arm or hand. Weaknesscan also occur in severe cases. ? Treatment may include rest, wearing a cervical collar, and physical therapy. Medicines may be prescribed to help with pain. In severe cases, injections or surgery may be needed. This information is not intended to replace advice given to you by your health care provider. Make sure you discuss any questions you have with your health care provider. Document Revised: 07/02/2019 Document Reviewed: 07/02/2019 [employer] Patient Education ?? 2021 [employer] Patient/Serging Machine Operator Automatic Signature Patient Name:BRIAN OLIVIA Petty I have received this information and my questions have been answered. Patient/Serging Machine Operator Automatic Name: Patient/Serging Machine Operator Automatic Signature: Relationship to Patient: Witness Name/Signature: Date: Electronically Signed on: 09/04/2022 14:47 ESTSigned by:AB Emily Johnston, DO: PERFORM Event Display: ED Discharge Information Authored Date: [id number] OLIVIA TORRES :1985 Age:37 years Sex:Male Visit Date:09/04/2022 Primary Care Physician: SIOMARA GODDARD Discharge Instructions We would like to thank you for allowing us to assist you with your healthcare needs. The following includes patient education materials and information regarding your injury/illness. Diagnosis from Today's Visit Cervical radiculopathy Discharge Vitals Temperature??(Tympanic) 97.3 ??F (36.3 ??C) Heart Rate??(Peripheral) 89 Blood Pressure?? 159/95?? Height?? 68.00 in (172.720 cm) Weight??(Estimated) 230.05 lb (104.33 kg) Allergies No active allergies What to Do Next You Need to Schedule the Following Appointments Follow Up with??[facility] When:??Within 1 week, only if needed Why: It is extremely important that you get a hold your primary care physician (Dr. Goddard)??as you will likely require??MRI imaging??to evaluate for cervical impingement. ??I suspect this is as you are having??minimal motor deficit of that left hand and you are left-handed.?? We discussed many options for treatment??which are only done a Band-Aid the situation.?? We settled on Valium??3 times daily as needed??pain and to help with sleep at night. 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 Where: [address], [place] [phone] You were treated today on an emergency basis; it may be tomlin to contact your primary care provider to notify them of your visit today. You may have been referred to your regular doctor or a specialist, please follow up as instructed. If your condition worsens or you can't get in to see the doctor, contact the Emergency Department. Education Materials Cervical Radiculopathy Cervical radiculopathy happens when a nerve in the neck (a cervical nerve) is pinched or bruised. This condition can happen because of an injury to the cervical spine (vertebrae) in the neck, or as part of the normal aging process. Pressure on the cervical nerves can cause pain or numbness that travels from the neck all the way down into the arm and fingers. Usually, this condition gets better with rest. Treatment may be needed if the condition does not improve. What are the causes? This condition may be caused by: ? A neck injury. ? A bulging (herniated) disk. ? Muscle spasms. ? Muscle tightness in the neck because of overuse. ? Arthritis. ? Breakdown or degeneration in the bones and joints of the spine (spondylosis) due to aging. ? Bone spurs that may develop near the cervical nerves. What are the signs or symptoms? Symptoms of this condition include: ? Pain. The pain may travel from the neck to the arm and hand. The pain can be severe or irritating. It may be worse when you move your neck. ? Numbness or tingling in your arm or hand. ? Weakness in the affected arm and hand, in severe cases. How is this diagnosed? This condition may be diagnosed based on your symptoms, your medical history, and a physical exam. You may also have tests, including: ? X-rays. ? A CT scan. ? An MRI. ? An electromyogram (EMG). ? Nerve conduction tests. How is this treated? In many cases, treatment is not needed for this condition. With rest, the condition usually gets better over time. If treatment is needed, options may include: ? Wearing a soft neck collar (cervical collar) for short periods of time, as told by your health careprovider. ? Doing physical therapy to strengthen your neck muscles. ? Taking medicines, such as NSAIDs or oral corticosteroids. ? Having spinal injections, in severe cases. ? Having surgery. This may be needed if other treatments do not help. Different types of surgery may be done depending on the cause of this condition. Follow these instructions at home: If you have a cervical collar: ? Wear it as told by your health care provider. Remove it only as told by your health care provider. ? Ask your health care provider if you can remove the collar for cleaning and bathing. If you are allowed to remove the collar for cleaning or bathing: ? Follow instructions from your health care provider about how to remove the collar safely. ? Clean the collar by wiping it with mild soap and water and drying it completely. ? Take out any removable pads in the collar every 1???2 days, and wash them by hand with soap and water. Let them air-dry completely before you put them back in the collar. ? Check your skin under the collar for irritation or sores. If you see any, tell your health care provider. Managing pain ? Take rpfo-veq-wwsfpns and prescription medicines only as told by your health care provider. ? If directed, put ice on the affected area. ? If you have a soft neck collar, remove it as told by your health care provider. ? Put ice in a plastic bag. ? Place a towel between your skin and the bag. ? Leave the ice on for 20 minutes, 2???3 times a day. ? If applying ice does not help, you can try using heat. Use the heat source that your health care provider recommends, such as a moist heat pack or a heating pad. ? Place a towel between your skin and the heat source. ? Leave the heat on for 20???30 minutes. ? Remove the heat if your skin turns bright red. This is especially important if you are unable to feel pain, heat, or cold. You may have a greater risk of getting burned. ? Try a gentle neck and shoulder massage to help relieve symptoms. Activity ? Rest as needed. ? Return to your normal activities as told by your health care provider. Ask your health care provider what activities are safe for you. ? Do stretching and strengthening exercises as told by your health care provider or physical therapist. ? Do not lift anything that is heavier than 10 lb (4.5 kg) until your health care provider tells you that it is safe. General instructions ? Use a flat pillow when you sleep. ? Do not drive while wearing a cervical collar. If you do not have a cervical collar, ask your healthcare provider if it is safe to drive while your neck heals. ? Ask your health care provider if the medicine prescribed to you requires you to avoid driving or using heavy machinery. ? Do not use any products that contain nicotine or tobacco, such as cigarettes, e- cigarettes, and chewing tobacco. These can delay healing. If you need help quitting, ask your health care provider. ? Keep all follow-up visits as told by your health care provider. This is important. Contact a health care provider if: ? Your condition does not improve with treatment. Get help right away if: ? Your pain gets much worse and cannot be controlled with medicines. ? You have weakness or numbness in your hand, arm, face, or leg. ? You have a high fever. ? You have a stiff, rigid neck. ? You lose control of your bowels or your bladder (have incontinence). ? You have trouble with walking, balance, or speaking. Summary ? Cervical radiculopathy happens when a nerve in the neck is pinched or bruised. ? A nerve can get pinched from a bulging disk, arthritis, muscle spasms, or an injury to the neck. ? Symptoms include pain, tingling, or numbness radiating from the neck into the arm or hand. Weaknesscan also occur in severe cases. ? Treatment may include rest, wearing a cervical collar, and physical therapy. Medicines may be prescribed to help with pain. In severe cases, injections or surgery may be needed. This information is not intended to replace advice given to you by your health care provider. Make sure you discuss any questions you have with your health care provider. Document Revised: 07/02/2019 Document Reviewed: 07/02/2019 Elsevier Patient Education ?? 2021 [employer] Patient/Serging Machine Operator Automatic Signature Patient Name:OLIVIA TORRES I have received this information and my questions have been answered. Patient/Serging Machine Operator Automatic Name: Patient/Serging Machine Operator Automatic Signature: Relationship to Patient: Witness Name/Signature: Date: Electronically Signed on: 09/04/2022 14:29 ESTSigned by:HALIE Patient Care team information Personnel Name: SIOMARA GODDARD Address: Address: [address] [place] [id number] [place]
--- OUTSIDE RECORDS SUMMARY | 2024-03-03 17:39 | XMS_ITS | Continuity of Care Document ---
Author Name Unknown Organization [facility] Ambulatory Clinics Address [address] [place] [address] Care Team Providers Care Physical Sciences Instructor Name Role Phone SHAHZAD RAMIREZ Primary Care Physician Encounter [facility] NBR [id number] Date(s): 04/02/23 - 04/02/23 [facility] Ambulatory Clinics [address] [place], [place] [address] Encounter Diagnosis Cervical radicular pain(Discharge Diagnosis) - 04/02/23 Discharge Disposition: Home or Self Care Attending Physician: Dulce Gaytan DO Allergies, Adverse Reactions, Alerts No Known Allergies Assessment and Plan Future Appointments Medications nabumetone 500 mg oral tablet 500 [...] 1 Temperature Tympanic [36.6-37.9 Deg C] 3 6.0 Deg C *LOW* (04/02/23 11:26 AM) Peripheral Pulse Rate [60-100 bpm] 78 bp m (04/02/23 11:26 AM) Respiratory Rate [12-24 br/min] 16 br/mi n (04/02/23 11:26 AM) Blood Pressure [90-140/60-90 mmHg] 130/7 0mmHg (04/02/23 11:26 AM) Social History Social History Type Response Tobacco Former tobacco user Tobacco Use:. Stopped in january. Used to smoke a pack per day. per day. 1 Sex 1States he quit approximately a year ago 11/2021 Patient Care team information Care Team Personnel Name: SHAHZAD RAMIREZ Position: No Access Member Role: Primary Care Physician Address: Address: [facility] [address] Care Team Related Persons Name: PHUC SWANSON
--- OUTSIDE RECORDS SUMMARY | 2024-03-03 17:39 | XMS_ITS | Continuity of Care Document ---
Author Name Unknown Organization [facility] Ambulatory Clinics Address [address] [place] [address] Care Team Providers Care Demographic Analyst Name Role Phone SHAHZAD RAMIRZE Primary Care Physician Encounter [facility] [id number] Date(s): 02/04/23 - 02/04/23 [facility] Ambulatory Clinics [address] [place], [place] [address] Encounter Diagnosis Cervical radicular pain(Discharge Diagnosis) - 02/04/23 Foraminal stenosis of cervical region(Discharge Diagnosis) - 02/04/23 Cervical disc herniation(Discharge Diagnosis) - 02/04/23 Discharge Disposition: Home or Self Care Attending Physician: Dulce Gaytan DO Admitting Physician: Dulce Gaytan DO Referring Physician: IKE Bush Allergies, Adverse Reactions, Alerts No Known Allergies Functional Status 02/04/23 Other exposure to Infectious Disease Non e Medications nabumetone 500 mg oral tablet 500 mg = 1 tab, Oral, BID, PRN pain, 0 Refill(s) Start Date: 11/07/22 Status: Ordered tiZANidine 4 mg oral capsule 4 mg = 1 cap, Oral, every 8 hr, PRN muscle pain, 0 Refill(s) Start Date: 11/07/22 Status: Ordered Problem List Condition Confirmation Course Effective Dates Status H ealth Status Informant Flat feet Confirmed Active Cervical [...] Range]: 1 Peripheral Pulse Rate [60-100 bpm] 83 bp m (02/04/23 8:27 AM) Blood Pressure [90-140/60-90 mmHg] 130/8 0mmHg (02/04/23 8:27 AM) Weight 104.5 kg (02/04/23 8:27 AM) Weight Measured (lbs) 230.383 lb (02/04/23 8:27 AM) [place] Body Weight Calculated 68.4 kg (02/04/23 8:27 AM) Height 172.72 cm (02/04/23 8:27 AM) Height/Length Measured (inches) 68 inch (02/04/23 8:27 AM) BSA Measured 2.24 m2 (02/04/23 8:27 AM) Body Mass Index 35.03 kg/m2 (02/04/23 8:27 AM) Social History Social History Type Response Tobacco Former tobacco user Tobacco Use:. Stopped in january. Used to smoke a pack per day. per day. 1 Sex 1States he quit approximately a year ago 11/2021 Physician Outpatient Note * Dulce Gaytan, DO: PERFORM, MODIFY, MODIFY, MODIFY Event Display: Office Clinic Note Physician Authored Date: [id number] YUNIOR TORRES :1985 Age:37 years Sex:Male Visit Date:02/04/2023 Primary Care Physician: SHAHZAD RAMIREZ Chief Complaint Cervical Pain Reason for Consultation neck pain with radiation to??left arm History of Present Illness ?? Pain started about 8 years ago, and pain was tolerable In August, he feels like he may have slept on it wrong Pain level 5/10 over past month, pain level ranges 2-6/10 Pain radiates down to left??arm at times, pain can radiate all the way down to his hand no numbness/tingling worse with moving neck or looking down notices slight difficulty with surgical lead ? MRI cervical spine 10/24/22 ?? Not tried physical therapy tizanidine - only takes when he has a flare up nabumetone Tylenol occasional - upsets his stomach caregiver assisted living??- 5 years ago ?? Review of Systems + left arm pain, patient denies any shortness of breath, chest pain, new numbness, bladder dysfunction, bowel dysfunction, falls, gait/balance impairment Physical Exam Vitals & Measurements HR:??83??(Peripheral)?? BP:??130/80?? SpO2:??96%?? HT:??172.72??cm?? WT:??104.5??kg?? BMI:??35.03??BSA:??2.24?? General: appears comfortable at rest HEENT: Facial movements symmetric Resp: Breathing comfortably, unlabored respirations Cervical ROM: Fairly normal range of motion of the cervical spine with rotation, flexion and extension. ??He does report discomfort with cervical flexion. Mild tenderness to palpation of the midline lower cervical??spine??and left trapezius Neuro: Motor: Trace weakness with left elbow extension 5-/5??and left??finger abduction 5-/5. ??Otherwise strength is 5 out of 5 in the upper and lower extremities bilaterally including shoulder abduction, elbow flexion, right elbow extension,??bilateral wrist extension and finger flexion??and right??finger abduction. Sensation:Intact to light touch in the upper and lower extremities bilaterally Reflexes: 1+ bilateral biceps, triceps, BR, patellar. ??Difficulty obtaining bilateral??Achilles reflexes.??Fried's negative b/l.??No clonus. 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 Yunior is a pleasant??37-year-old gentleman??who presents for evaluation of neck pain with radiation to the left upper extremity. ??He states that symptoms have been ongoing for??about 8 years, waxing and waning in intensity. ??His pain??worsened in August of this year.?? He was seen by Alesia Brewer the spine center in October,??and??injections versus surgery was discussed. ??He is interested in interventional options to help with his pain. ??The pain radiates primarily down the posterior aspect of the left arm, following a C7 distribution. ??MRI of the cervical spine??from??10/24/2022 shows??varying degrees of foraminal narrowing. ??At C6-7, there is a left lateral disc protrusion resulting in severe left foraminal narrowing??which correlates with his current symptoms.?? Exam is notable for trace??triceps??and finger abduction weakness.?? He denies any progressive weakness??since he was last seen in the [facility] - it has been stable. ?? We reviewed the option to trial a cervical epidural steroid injection. ??Risks and potential benefits were reviewed. ??We discussed that this is??most helpful for??radicular arm pain and??would not be expected to help with the weakness. ??He expressed understanding. ??He agrees to monitor??the weakness closely and notify us if there are any progressive??changes as this would warrant considerationof surgical intervention.?? We discussed that he would need to be off all NSAIDs??and??aspirin for 7 days prior to the procedure.?? He is on nabumetone as needed, which he has not taken recently. ? He will return for VADIM. Images MRI cervical spine 10/24/22 Problem List/Past Medical History Ongoing Cervical disc disorder with radiculopathy Cervical radiculopathy Cervical spondylosis Chronic low back pain Flat feet High blood pressure History of opioid abuse Neck pain, chronic Tinea cruris Tobacco dependency Historical No qualifying data Medications Inpatient No active inpatient medications Home nabumetone 500 mg oral tablet, 500 mg= 1 tab, Oral, BID, PRN tiZANidine 4 mg oral capsule, 4 mg= 1 cap, Oral, every 8 hr, PRN Allergies No Known Allergies Social History Alcohol Current, 1-2 times per week- Comments: 1-2 times weekly Electronic Cigarette/Vaping Electronic Cigarette Use: Never. Substance Use Past Tobacco Former tobacco user Tobacco Use:. Stopped in january. Used to smoke a pack per day. per day.- Comments: States he quit approximately a year ago 11/2021 Electronically Signed on 02/04/23 09:07 AM Dulce Gaytan, Patient Care team information Care Team Personnel Name: SHAHZAD RAMIREZ Position: No Access Member Role: Primary Care Physician Address: Address: [facility] [address]- Care Team Related Persons Name: PHUC SWANSON
[2024-03-03 17:58] LABS: Abs Immature Grans 0.03 10^3/uL (0.0-0.06); Absolute Basophil Count 0.06 10^3/uL (0.0-0.2); Absolute Eosinophil Count 0.14 10^3/uL (0.0-0.7); Absolute Lymphocyte Count 2.13 10^3/uL (1.2-3.4); Absolute Monocyte Count 0.83 10^3/uL (0.1-0.8); Absolute Neutrophil Count 5.68 10^3/uL (1.2-6.7); Basophils % 0.7 %; Eosinophils % 1.6 %; HGB 14.7 g/dL (13.5-17.5); Immature Grans % 0.3 %; MCHC 34.2 % (32.0-36.0); MCV 97 fL (80-95); MPV 10.9 fL (8.0-11.0); Monocytes % 9.4 %; Platelet Count 255 10^3/uL (130-400); RBC 4.45 10^6/uL (4.36-5.78); RDW 12.9 % (11.8-14.1); RDW-SD 45.6 fL; WBC 8.87 10^3/uL (4.4-10.8)
[2024-03-03 19:20] LABS: ALT 48 U/L (16-63); AST 22 U/L (15-37); Alkaline Phosphatase 65 U/L (46-116); Anion Gap 6.9 mmol/L (3-11); BUN 19 mg/dL (7-18); Bilirubin, Total 0.75 mg/dL (0.2-1.0); CO2 30.1 mmol/L (21.0-32.0); CREATININE 1.1 mg/dL (0.70-1.30); Chloride 106 mmol/L (98-107); Estimated GFR 87.57 (mL/min/1.73m2); Glucose 115 mg/dL (74-106); Potassium 4.4 mmol/L (3.5-5.1); Sodium 143 mmol/L (136-145); TSH (W/Ref FT4) 9.79 uIU/mL (0.36-3.74); Total Protein 7.4 g/dL (6.4-8.2); Vitamin D 25 Total 44.9 ng/mL (30-100)
[2024-03-03 19:37] LABS: FREE T4 0.62 ng/dL (0.76-1.46)
[2024-03-10 14:40] LABS: Testosterone, Free 6.99 ng/dL (4.65-18.1); Testosterone, Total 181 ng/dL (240-950)
== END 2024-03-03 17:39 | disposition home or self-care (01) ==
LOC: NCHCN 17:38
PROVIDERS: PCP Family Medicine; Visit Provider Nurse Practitioner Family
DX: R53.83 Other fatigue (principal)
CPT/HCPCS: 80053; 82306; 84402; 84403; 84439; 84443; 85025

== ENCOUNTER 2024-05-16 08:23 | Emergency (ER) | payer MEDICAID, SELFPAY ==
[2024-05-16 08:25] VITALS: BP 149/90; PULSE 66; RESP 14
--- OUTSIDE RECORDS SUMMARY | 2024-05-16 08:39 | XMS_ITS | Continuity of Care Document ---
Author Organization [facility] Address [address] [place] [address] Assessment No assessment recorded. Plan of Treatment Reminders Order Date Submit Date Provider Last Modified By Organization Details Last Modified Time Details Appointments Follow Up 30 2023 01:30P M Not available Not available Not available Lab drug screen, urine 2023 024 [facility], [address], [place], [address], 04/08/2024 14:44:36 TSH + free T4, serum 2023 024 [facility] ([facility]), [address] [place] [address] [place], [address], 05/11/2024 16:41:28 Referral None recorded. Procedures None recorded. Surgeries None recorded. Imaging US, thyroid - new diagnosis hypothyro idism with enlarge bilateral thyroid on exam 2023 024 [email or web address] [facility] (Radiology), [address] [place] [address] [place], [address], 05/12/2024 08:51:59 Medication Orders Lyrica 200 mg capsule 2023 024 [facility], [address] [facility], [place], [address], 04/08/2024 14:44:37 Adderall XR 20 mg capsule,e xtended release 2023 024 [facility], [address] [facility], [place], [address], 04/08/2024 14:44:35 Patient TargetsNo targets recorded. Patient Instructions Encounter Date Encounter Id Patient Instructions Last Modified By Organization Details Last Modified Time 04/08/2024 [id number] nice to see you today Anjel. Lets try Adderall 20 mg XR once daily for attention deficit symptoms. Let me know after about a week if seems to be helpful. I sent in a 2-week supply. If any negative side effects or noticed elevated blood pressure please let me know. Sent in 2 weeks supply of 200 mg Lyrica to try higher dose for 2 weeks. See if better pain control. If not or if negative side effects please let me know via the portal or phone. Contract signed today as well as urine drug screen. Lets check how your thyroid looks with a thyroid ultrasound. Radiology will call you to schedule the thyroid ultrasound. Get your thyroid labs checked again over at [facility] lab you can call them directly to make an appointment anytime May 04 or later. Orders were sent over there today for repeat testing. For now continue the 50 mcg levothyroxine daily. [email or web address] Not available 04/08/2024 14:42:32 Reason for Referral None Reported. Results Created Date Observation Date Name Description Value Unit Range Abnormal Flag Note LastModifiedBy Organization Detail LastModifiedTime 04/08/2004/08/2024 drug scree n, urine Amphetamines : positi ve Not Available [facility] [address], [place], [address], 04/08/2024 14:00:45 04/08/20 24 04/08/2024 drug scree n, urine Barbiturates : negati ve Not Available [facility] [address], [place], [address], 04/08/2024 14:00:45 04/08/20 24 04/08/2024 drug scree n, urine BUP: negati ve Not Available [facility] [address], [place], [address], 04/08/2024 14:00:45 04/08/20 24 04/08/2024 drug scree n, urine Benzodiazepi cam: negati ve Not Available [facility] [address], [place], [address], 04/08/2024 14:00:45 04/08/20 24 04/08/2024 drug scree n, urine Cocaine: negati ve Not Available [facility] [address], [place], [address], 04/08/2024 14:00:45 04/08/20 24 04/08/2024 drug scree n, urine EDDP (Methadone Metabolite) negati ve Not Available [facility] [address], [place], [address], 04/08/2024 14:00:45 04/08/20 24 04/08/2024 drug scree n, urine (MET) Methamphetam ine: negati ve Not Available [facility] [address], [place], [address], 04/08/2024 14:00:45 04/08/20 24 04/08/2024 drug scree n, urine MDMA: negati ve Not Available [facility] [address], [place], [address], 04/08/2024 14:00:45 04/08/20 24 04/08/2024 drug scree n, urine MTD (Methadone): negati ve Not Available [facility] [address], [place], [address], 04/08/2024 14:00:45 04/08/20 24 04/08/2024 drug scree n, urine Ahp479 (Opiate): negati ve Not Available [facility] [address], [place], [address], 04/08/2024 14:00:45 04/08/20 24 04/08/2024 drug scree n, urine OXY (Oxycodone): negati ve Not Available [facility] [address], [place], [address], 04/08/2024 14:00:45 04/08/20 24 04/08/2024 drug scree n, urine TCA: negati ve Not Available [facility] [address], [place], [address], 04/08/2024 14:00:45 04/08/20 24 04/08/2024 drug scree n, urine THC: positi ve Not Available [facility] [address], [place], [address], 04/08/2024 14:00:45 04/08/20 24 04/08/2024 drug scree n, urine Temperature: 90 Not Available [facility] [address], [place], [address], 04/08/2024 14:00:45 05/10/20 24 10/24/2022 MRI, neck No observ ation record ed. [email or web address] Not Available 05/10 00:04:40 05/10/20 24 10/24/2022 imagi ng/di agnos tic resul t No observ ation record ed. [email or web address] Not Available 05/10 00:04:44 Result Notes None recorded. Problems Name Problem SNOMED Code Status Onset Date Resolution Date Notes Provider Name and Address Organization Details Recorded Time Nicotine dependen ce 97368196 Active 201508/30/19 23 - Comments only - Wes Goddard MD - Encourag ed cessatio n, congratu lated on success so far. Problem Code: F17.209; Problem Code Type: ICD-10; SH[address], [facility] [address] , [facility] 4 16:38:28 Opioid abuse 6760466 Completed 201502/24/2024 Problem Code: F11.10; Problem Code Type: ICD-10; SH[address] Dr, [facility] [address] , [facility] 4 14:38:12 Infectio n by methicil vernon sensitiv e Staphylo coccus aureus 652232730 Completed 201507/09/2016 06/17/20 16 - Comments only - Kristen Noland MD - I explaine d to him that there is no evidence that treating staph carriers permanen tly eliminat es the staff. However given that he has had 2 back-to- back staph infectio ns, and his girlfrie nd had a staph infectio n bad enough to be hospital ized, I suggeste d that we go ahead and treat him with 2 weeks of 3 times a day Bactroba n in the nasal passages . 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 Problem Code: M54.5; Problem Code Type: ICD-10; SHAKIR [address] Dr, [facility] [address] , [facility] 4 16:38:23 Tinea cruris 292968254 Completed 201702/24/2024 04/23/20 18 - Comments only - Kristen Noland MD - Trial of 2% ketocona zole cream Problem Code: B35.6; Problem Code Type: ICD-10; SHAKIR CAR[address] Dr, [place] [address] , [facility] 4 16:38:01 Neck pain 25073233 Active 2022 Problem Code: M54.2; Problem Code Type: ICD-10; SHAKIR CARMIC[address] Dr, [address] 4 16:38:25 Elevated blood-pr essure reading without diagnosi s of hyperten fina 603935935 Active 2022 Problem Code: R03.0; Problem Code Type: ICD-10; SHAKIR CARMIC[address] Dr, [place] [address] , [facility] 4 16:38:19 Cervical radiculo ricky 85419816 Active 2022 Problem Code: M54.12; Problem Code Type: ICD-10; SHAKIR CAR[address] Dr, [place] [address] , [facility] 4 16:38:16 Imaging result abnormal 929954976 Completed 202202/24/2024 Problem Code: R93.89; Problem Code Type: ICD-10; SHAKIR CAR[address] Dr, [facility] [address] [place] [address] 4 16:38:35 Anxiety 30520559 Completed 201506/17/2016 Problem Code: F41.8; Problem Code Type: ICD-10; Not Available [facility] 3 05:16:09 Cellulit is 109178570 Completed 201506/17/2016 Problem Code: L03.90; Problem Code Type: ICD-10; Not Available [facility] 3 05:16:11 Right lower quadrant pain 764254230 Completed 201708/30/2022 Problem Code: R10.31; Problem Code Type: ICD-10; Not Available [facility] 3 05:16:13 Fatigue 04155485 Active [address], [facility] [address] , [facility] 4 16:38:21 Attentio n deficit hyperact ivity disorder 373314588 Active [address], [address] 4 16:38:13 Verruca vulgaris 34861903 Active [address], [place] [address] , [facility] 4 16:40:08 Hypothyr oidism 67444604 Active [address], [place] [address] , [facility] 4 14:07:34 Attentio n deficit hyperact ivity disorder , predomin antly inattent keisha type 98966493 Active [address], [facility] [address] , [facility] 4 13:58:56 Goiter 8884763 Active [address], [facility] [address] , [facility] 4 14:17:43 Problem Notes None recorded. Medical Equipment None Reported. Allergies No known drug allergies Medications Name Sig Start Date Stop Date Status Note LastModified by Organization Details LastModified Time amoxicilli n 500 mg capsule TAKE TWO CAPSULES BY MOUTH NOW; THEN TAKE ONE CAPSULE BY MOUTH EVERY 8 HOURS UNTIL GONE 02/23 completed Not Available Not Available Not Available tizanidine 4 mg tablet Take 1 tablet by mouth every eight hours as needed for muscle spasms 04/08 completed pt states he takes only once in a while Not Available Not Available Not Available sertraline 100 mg tablet Take 1 tab by mouth daily 06/17 completed Not Available Not Available Not Available Adderall XR 20 mg capsule,ex tended release TAKE ONE CAPSULE BY MOUTH EVERY DAY IN THE MORNING FOR 14 DAYS FOR ADD active Not Available Not Available No t Available Bactroban 2 % topical ointment apply three times a day to affected area 07/01 completed Not Available Not Available Not Available levothyrox ine 50 mcg tablet TAKE ONE TABLET BY MOUTH EVERY DAY IN THE MORNING FOR HYPOTHYR OIDISM active Not Available Not Available No t Available erythromyc in 5 mg/gram (0.5 %) eye ointment apply to left eye QID as directed 08/31 completed [facility] Not Available Not Available Not Available cephalexin 500 mg tablet Take 1 tab by mouth four times daily 06/17 completed per [facility] Not Available Not Available Not Available dextroamph etamine-am phetamine ER 30 mg 24hr capsule,ex tend release TAKE ONE CAPSULE BY MOUTH EVERY MORNING active Not Available Not Available No t Available ketoconazo le 2 % topical cream Apply to skin twice a day 09/18 completed Not Available Not Available Not Available nabumetone 500 mg tablet Take 1 tablet by mouth twice a day 2022 active pt states he takes only once in a while Not Available Not Available Not Available Vitamin D3 25 mcg (1,000 unit) capsule Take 1 capsule every day by oral route. active Not Available Not Available No t Available pregabalin 50 mg capsule TAKE ONE CAPSULE BY MOUTH EVERY DAY WITH MEALS 03/18 completed Not Available Not Available Not Available pregabalin 100 mg capsule TAKE ONE CAPSULE BY MOUTH EVERY DAY FOR NERVE PAIN active Not Available Not Available No t Available pregabalin 200 mg capsule TAKE ONE CAPSULE BY MOUTH EVERY MORNING FOR CERVICAL RADICULO RICKY active Not Available Not Available No t Available Fish Oil 1,000 mg (120 mg-180 mg) capsule Take 1 capsule every day by oral route. active Not Available Not Available No t Available methocarba mol 1,000 mg tablet Take 1 tablet by mouth at bedtime as needed for muscle spasm of neck 09/27 completed Not Available Not Available Not Available Vitals Date Recorded Body height Body mass index (BMI) Body weight Body temperature Heart rate Respiratory rate Systolic blood pressure Diastolic blood pressure Provider Name and Address Organization Details Last Updated DateTime 174.62 cm 30.4 kg/m2 39747.2 8 g 98.6 [degF] 72 /min 16 /min 122 mm[Hg] 74 mm[Hg] TUYET CHAMPAGNE RN [facility] 13:48:02 Social History Question Answer Notes LastModified by Organizat ion Details LastModified Time Tobacco Smoking Status Current Every Day Smoker TUYET CHAMPAGNE RN [facility], [facility] 04/08/2024 13:45:13 Do You Or Have You Ever Used E-cigarettes Or Vape? Never Used Electronic Cigarettes Information not available 04/08/2024 What Was The Date Of Your Most Recent Tobacco Screening? 04/08/2024 Information not available 04/08/2024 Do You Or Have You Ever Used Smokeless Tobacco? Former Smokeless Tobacco User Information not available 04/08/2024 How Much Tobacco Do You Smoke? 0.25 PPD Pt States 2 Cigarettes /day Information not available 04/08/2024 Do You Or Have You Ever Used Any Other Forms Of Tobacco Or Nicotine? Yes Information not available 04/08/2024 Sex: Male Functional Status None recorded. Mental Status None recorded. Family History Relationship Description Onset Age of this Age Resolved Age Notes LastModified by Organization Details LastModified Time Unspecified Relation Family history unknown Relati ve: 'First Degree Blood Relati ve'; [email or web address] Not available 07/04/2023 03:54:35 Medical History No medical history recorded. Immunizations Vaccine Type Date Status Provider Name and Address Organization Details Recorded Time Tdap 06/17/2016 completed Not Available [facility] 06:11:27 Influenza, split virus, trivalent, preservative 06/17/2016 completed Not Available [facility] 07/04/2023 06:11:27 SARS-COV-2 (COVID-19) vaccine, UNSPECIFIED 01/18/2021 completed Not Available [facility] 07/04/2023 06:11:27 SARS-COV-2 (COVID-19) vaccine, UNSPECIFIED 02/05/2021 completed Not Available [facility] 07/04/2023 06:11:28 Past Encounters Encounter ID Performer Location Encounter Start Date Encounter Closed Date Diagnosis/Indication Diagnosis SNOMED-CT Code Diagnosis ICD10 Code [id number] SHAKIR CARMICHAEL [facility] [address] [place] [address] 04/08/2024 13:33:22 04/08/2024 14:58:19 Hypothyroidism 02605219 E03.9 Attention deficit hyperactivity disorder, predominantly inattentive type 26443278 F90.0 Cervical radiculopathy 43438256 M54.12 Verruca vulgaris 9629393 3 B07.9 Goiter 7766103 E04.9 Health Concerns Section Related Observation LastModified by Organization Detai ls LastModified Time None Recorded Concern Status LastModified by Organization Details LastModified Time None Recorded Payers Encounter Date Sequence Insurance Name Policy Number Policy Webb Covered Member ID Webb Member ID Guarantor Name 04/08/2024 1 [facility] (MEDICAID) Yunior Izquierdo [id number] Yunior Izquierdo Notes Date Note Type Note Provider Name and Address Organization Details Recorded Time 04/08/2024 text/html HPI Notes: Sunny hubbard is a pleasant 39-year-old male here today for follow-up discussion regarding cervical radiculopathy and pain and neck. Started Lyrica 50 mg at our last office visit on 02-24-24. His dose was then increased to 100 mg due to ineffectiveness at the 50 mg dosing. I sent in quantity of 28 100 mg pregabalin capsules on 03/18/2024. He reports the 100 mg helps some but not much. Takes it once in the morning. Wondering about possibly increasing the dose. We can completed a bunch of labs last time on 03/03/2024 due to his fatigue complaint and found that his TSH was elevated at 9.79 with low free T4 at 0.62. He was started on 50 mcg levothyroxine once a day. Says he has not noticed much in the way of improvement of fatigue. Does notice that intermittently it feels like his neck has some tenderness and perhaps mild swelling over his thyroid. Father had a history of thyroid issues but not cancerous. Has never had an ultrasound of his thyroid. He is willing to get this done. Last office visit we had also discussed possibly starting a medication for attention deficit disorder that he is diagnosed with in high school. Says that he has tried medication in the past and actually tried his 's Adderall recently and it was helpful for his symptoms. Says he was not on a consistent stimulant when he was in high school due to his parents not wanting him to be on medication. Feels he is very scattered and needs some help with concentration especially with busy home life. Says that with a urine drug screen today he will have positive for amphetamines due to the fact that he took his 's Adderall prescription today. Also does smoke marijuana. Would like to be on a daily prescription of his own for ADD symptoms. Last office visit his blood pressure was elevated due to pain and today it is actually in normal range. Although he does not notice much of a difference with the Lyrica seems to have helped at least with bringing down baseline with blood pressure. He has a large viral wart on his abdomen and was hoping to get cryo therapy today. Has treated it with [id number] topicals and it has actually calmed down a little bit. Denies chest pain, chest tightness, headaches, vision changes, balance issues, changes in vision, edema, swelling, weakness. CLIFFORD STARKS, SHAKIR [address], [place], [address], [facility]. 04/08/2024 20:40:09
--- OUTSIDE RECORDS SUMMARY | 2024-05-16 08:39 | XMS_ITS | Data Portability ---
Author Organization [facility] Address [address] [place] [address] Assessment No assessment recorded. Plan of Treatment Reminders Order Date Submit Date Provider Last Modified By Organization Details Last Modified Time Details Appointments Follow Up 2023 01:30P M Not available Not available Not available Lab CMP, serum or plasma 2023 024 [facility], [address], [place], [address], 03/03/2024 19:23:47 CBC w/ auto diff 2023 024 [facility], [address], [place], [address], 03/03/2024 18:01:30 TSH, serum, reflex free T4 2023 024 [email or web address] [facility], [address], [place], [address], 03/04/2024 09:29:07 testoster one, free + total, serum 2023 024 [facility], [address], [place], [address], 03/17/2024 17:05:02 vitamin D, 25-hydrox y, total, serum 2023 024 [facility], [address], [place], [address], 03/03/2024 19:23:48 CMP, serum or plasma 2023 024 [facility], [address], [place], [address], 03/03/2024 19:23:47 CBC w/ auto diff 2023 024 [facility], [address], [place], [address], 03/03/2024 18:01:30 TSH, serum, reflex free T4 2023 024 [email or web address] [facility], [address], [place], [address], 03/04/2024 09:29:07 testoster one, free + total, serum 2023 024 [facility], [address], [place], [address], 03/17/2024 17:05:02 vitamin D, 25-hydrox y, total, serum 2023 024 [facility], [address], [place], [address], 03/03/2024 19:23:48 drug screen, urine 2023 024 [email or web address] [facility], [address], [place], [address], 04/08/2024 14:44:36 TSH + free T4, serum 2023 024 [facility]), [address] [place] [address] , [place], [address], 05/11/2024 16:41:28 Referral None recorded. Procedures None recorded. Surgeries None recorded. Imaging US, thyroid - new diagnosis hypothyro idism with enlarge bilateral thyroid on exam 2023 024 [email or web address] [facility] (Radiology), [address] [place], [address], 05/12/2024 08:51:59 Medication Orders Lyrica 50 mg capsule 2023 024 [facility], [address] [place], [address], 03/18/2024 14:48:26 Lyrica 200 mg capsule 2023 024 [facility], [address] [place], [address], 04/08/2024 14:44:37 Adderall XR 20 mg capsule,e xtended release 2023 024 [facility], [address] [place], [address], 04/08/2024 14:44:35 Patient TargetsNo targets recorded. Patient Instructions Encounter Date Encounter Id Patient Instructions Last Modified By Organization Details Last Modified Time 04/08/2024 [id number] nice to see you today Anjel. Lets [...] your thyroid labs checked again over at [facility] lab you can call them directly to make an appointment anytime May 04 or later. Orders were sent over there today for repeat testing. For now continue the 50 mcg levothyroxine daily. [email or web address] Not available 04/08/2024 14:42:32 Reason for Referral None Reported. Results Created Date Observation Date Name Description Value Unit Range Abnormal Flag Note LastModifiedBy Organization Detail LastModifiedTime 03/03/20 24 03/03/2024 COMPL ETE BLOOD COUNT W/DIF F WBC 8.87 10_3/ uL 4.4-10 .8 normal Not Available [address] [place], [address] 03/03/2024 18:01:30 03/03/20 24 03/03/2024 COMPL ETE BLOOD COUNT W/DIF F RBC 4.45 10_6/ uL 4.36-5 .78 normal Not Available [address] [place], [address] 03/03/2024 18:01:30 03/03/2003/03/2024 COMPL ETE BLOOD COUNT W/DIF F HGB 14.7 g/dL 13.5-1 7.5 normal Not Available [address] [place], [address] 03/03/2024 18:01:30 03/03/2003/03/2024 COMPL ETE BLOOD COUNT W/DIF F HCT 43.0 % 40.0-5 0.0 normal Not Available [address] [place], [address] 03/03/2024 18:01:30 03/03/2003/03/2024 COMPL ETE BLOOD COUNT W/DIF F MCV 97 fL 80-95 high Not Available [facility] [address] [place], [address] 03/03/2024 18:01:30 03/03/2003/03/2024 COMPL ETE BLOOD COUNT W/DIF F MCH 33.0 pg 27.0-3 3.0 normal Not Available [address] [place], [address] 03/03/2024 18:01:30 03/03/20 24 03/03/2024 COMPL ETE BLOOD COUNT W/DIF F MCHC 34.2 % 32.0-3 6.0 normal Not Available [address] [place], [address] 03/03/2024 18:01:30 03/03/2003/03/2024 COMPL ETE BLOOD COUNT W/DIF F RDW 12.9 % 11.8-1 4.1 normal Not Available [address] [place], [address] 03/03/2024 18:01:30 03/03/20 24 03/03/2024 COMPL ETE BLOOD COUNT W/DIF F platelet count 255 10_3/ uL 130-40 0 normal Not Available [address] [place], [address] 03/03/2024 18:01:30 03/03/2003/03/2024 COMPL ETE BLOOD COUNT W/DIF F MPV 10.9 fL 8.0-11 .0 normal Not Available [address] [place], [address] 03/03/2024 18:01:30 03/03/20 24 03/03/2024 COMPL ETE BLOOD COUNT W/DIF F neutrophils % 64.0 % Not Available [address] [place], [address] 03/03/2024 18:01:30 03/03/20 24 03/03/2024 COMPL ETE BLOOD COUNT W/DIF F lymphocytes % 24.0 % Not Available [address] [place], [address] 03/03/2024 18:01:30 03/03/20 24 03/03/2024 COMPL ETE BLOOD COUNT W/DIF F monocytes % 9.4 % Not Available [address] [place], [address] 03/03/2024 18:01:30 03/03/20 24 03/03/2024 COMPL ETE BLOOD COUNT W/DIF F eosinophils % 1.6 % Not Available [address] [place], [address] 03/03/2024 18:01:30 03/03/20 24 03/03/2024 COMPL ETE BLOOD COUNT W/DIF F basophils % 0.7 % Not Available [address] [place], [address] 03/03/2024 18:01:30 03/03/20 24 03/03/2024 COMPL ETE BLOOD COUNT W/DIF F immature grans % 0.3 % Not Available [address] [place], [address] 03/03/2024 18:01:30 03/03/20 24 03/03/2024 COMPL ETE BLOOD COUNT W/DIF F nucleated RBC 0.0 % 0.0-0. 3 normal Not Available [address] [place], [address] 03/03/2024 18:01:30 03/03/20 24 03/03/2024 COMPL ETE BLOOD COUNT W/DIF F absolute neutrophil count 5.68 10_3/ uL 1.2-6. 7 normal Not Available [address] [place], [address] 03/03/2024 18:01:30 03/03/20 24 03/03/2024 COMPL ETE BLOOD COUNT W/DIF F absolute lymphocyte count 2.13 10_3/ uL 1.2-3. 4 normal Not Available [address] [place], [address] 03/03/2024 18:01:30 03/03/20 24 03/03/2024 COMPL ETE BLOOD COUNT W/DIF F absolute monocyte count 0.83 10_3/ uL 0.1-0. 8 high Not Available [address] [place], [address] 03/03/2024 18:01:30 03/03/20 24 03/03/2024 COMPL ETE BLOOD COUNT W/DIF F absolute eosinophil count 0.14 10_3/ uL 0.0-0. 7 normal Not Available [address] [place], [address] 03/03/2024 18:01:30 03/03/20 24 03/03/2024 COMPL ETE BLOOD COUNT W/DIF F absolute basophil count 0.06 10_3/ uL 0.0-0. 2 normal Not Available [address] [place], [address] 03/03/2024 18:01:30 03/03/20 24 03/03/2024 COMPR EHENS ADONIS METAB OLIC PANEL calcium 9.0 mg/dL 8.5-10 .1 normal Not Available [address] [place], [address] 03/03/2024 19:23:47 03/03/20 24 03/03/2024 COMPR EHENS ADONIS METAB OLIC PANEL glucose 115 mg/dL 74-106 high Not Available [facility] [address] [place], [address] 03/03/2024 19:23:47 03/03/20 24 03/03/2024 COMPR EHENS ADONIS METAB OLIC PANEL BUN 19 mg/dL 7-18 high Not Available [facility] [address] [place], [address] 03/03/2024 19:23:47 03/03/20 24 03/03/2024 COMPR EHENS ADONIS METAB OLIC PANEL creatinine 1.1 mg/dL 0.70-1 .30 normal Not Available [address] [place], [address] 03/03/2024 19:23:47 03/03/20 24 03/03/2024 COMPR EHENS ADONIS METAB OLIC PANEL estimated GFR 87.57 mL/min /1.73m 2 The eGFR is calcu lated from a serum creat inine using the CKD-E PI 2020 equat ion. Other varia bles requi red for the equat ion are gende r and age; this equat ion does not inclu de a race coeff icien t. This equat ion has simil ar overa ll perfo rmanc e to previ ous equat ions excep t value s may diffe r, in parti cular , in patie nts with highe r value s of eGFR and young er-ag ed adult s. Not Available [address] [place], [address] 03/03/2024 19:23:47 07/10/20 24 03/03/2024 COMPR EHENS ADONIS METAB OLIC PANEL total protein 7.4 g/dL 6.4-8. 2 normal Not Available [address] [place], [address] 03/03/2024 19:23:47 03/03/20 24 03/03/2024 COMPR EHENS ADONIS METAB OLIC PANEL albumin 4.0 g/dL 3.4-5. 0 normal Not Available [address] [place], [address] 03/03/2024 19:23:47 03/03/20 24 03/03/2024 COMPR EHENS ADONIS METAB OLIC PANEL bilirubin, total 0.75 mg/dL 0.2-1. 0 normal Not Available [address] [place], [address] 03/03/2024 19:23:47 03/03/20 24 03/03/2024 COMPR EHENS ADONSI METAB OLIC PANEL alk phos 65 U/L 46-116 normal Not Available [address] [place], [address] 03/03/2024 19:23:47 03/03/20 24 03/03/2024 COMPR EHENS ADONIS METAB OLIC PANEL sodium 143 mmol/ L 136-14 5 normal Not Available [address] [place], [address] 03/03/2024 19:23:47 03/03/20 24 03/03/2024 COMPR EHENS ADONIS METAB OLIC PANEL potassium 4.4 mmol/ L 3.5-5. 1 normal Not Available [address] [place], [address] 03/03/2024 19:23:47 03/03/20 24 03/03/2024 COMPR EHENS ADONIS METAB OLIC PANEL chloride 106 mmol/ L 98-107 normal Not Available [address] [place], [address] 03/03/2024 19:23:47 03/03/20 24 03/03/2024 COMPR EHENS ADONIS METAB OLIC PANEL CO2 30.1 mmol/ L 21.0-3 2.0 normal Not Available [address] [place], [address] 03/03/2024 19:23:47 03/03/20 24 03/03/2024 COMPR EHENS ADONIS METAB OLIC PANEL anion gap 6.9 mmol/ L 3-11 normal Not Available [address] [place], [address] 03/03/2024 19:23:47 03/03/20 24 03/03/2024 COMPR EHENS ADONIS METAB OLIC PANEL AST 22 U/L 15-37 normal Not Available [facility] [address] [place], [address] 03/03/2024 19:23:47 03/03/20 24 03/03/2024 COMPR EHENS ADONIS METAB OLIC PANEL ALT 48 U/L 16-63 normal Not Available [facility] [address] [place], [address] 03/03/2024 19:23:47 03/03/20 24 03/03/2024 TSH (W/RE F FT4) TSH (w/ref FT4) 9.79 uIU/m L 0.36-3 .74 high Not Available [address] [place], [address] 03/03/2024 19:23:48 03/03/20 24 03/03/2024 VITAM IN D 25 TOTAL vitamin D 25 total 44.9 NG/mL 30-100 normal Refer ence Guide lines : Defic ient: <10 ng/ml Insuf ficie nt: 10-30 ng/ml Suffi cient : 30-10 0 ng/ml Toxic : >100 ng/ml Not Available [address] [place], [address] 03/03/2024 19:23:48 03/03/20 24 03/03/2024 TSH (W/RE F FT4) TSH (w/ref FT4) 9.79 uIU/m L 0.36-3 .74 high Not Available [address] [place], [address] 03/03/2024 19:41:51 03/03/20 24 03/03/2024 FREE T4 free T4 0.62 NG/dL 0.76-1 .46 low Not Available [address] [place], [address] 03/03/2024 19:41:51 03/03/20 24 03/10/2024 TESTO STERO NE, TOTAL FREE testosterone , free 6.99 NG/dL 4.65-1 8.1 ----- ----- ----- ----A DDITI ONAL INFOR MATIO N---- ----- ----- ----- This test was devel oped and its perfo rmanc e [place] [facility] deter mined by Rutledge Annika neff in a nanci r consi stent with CLIA requi remen ts. This test has not been clear ed or appro katie by the U.S. Food and Drug Admin istra tion. Not Available [address] [place], [address] 03/10/2024 15:29:04 03/03/20 24 03/10/2024 TESTO STERO NE, TOTAL FREE testosterone , total 181 NG/dL 240-95 0 abnormal ----- ----- ----- ----A DDITI ONAL INFOR MATIO N---- ----- ----- ----- Testi ng perfo rmed by Vishnu phelps [facility] ([facility]/MS) . This test was devel oped and its perfo rmanc e [place] [facility] deter mined by Aamir neff in a nanci r consi stent with CLIA requi remen ts. This test has not been clear ed or appro katie by the U.S. Food and Drug Admin istra tion. Test Perfo rmed by: Aamir neff [facility] - [place] [address], [place] [address] Lab Direc tor: Piyush Pollack nn Ph.D. ; CLIA# [id number] Not Available [address] [place], [address] 03/10/2024 15:29:04 04/08/20 24 04/08/2024 drug scree n, urine Amphetamines : positi ve Not Available [facility] [address], [place], [address], 04/08/2024 14:00:45 04/08/20 24 04/08/2024 drug scree n, urine Barbiturates : negati ve Not Available [facility] [address], [place], [address], 04/08/2024 14:00:45 04/08/20 24 04/08/2024 drug scree n, urine BUP: negati ve Not Available [facility] [address], [place], [address], 04/08/2024 14:00:45 04/08/20 24 04/08/2024 drug scree n, urine Benzodiazepi cam: negati ve Not Available [facility] [address], [place], [address], 04/08/2024 14:00:45 04/08/20 24 04/08/2024 drug scree n, urine Cocaine: negati ve Not Available [facility] [address], [place], [address], 04/08/2024 14:00:45 04/08/20 24 04/08/2024 drug scree n, urine EDDP (Methadone Metabolite) negati ve Not Available [facility] [address], [place], [address], 04/08/2024 14:00:45 04/08/20 24 04/08/2024 drug scree n, urine (MET) Methamphetam ine: negati ve Not Available [facility] [address], [place], [address], 04/08/2024 14:00:45 04/08/20 24 04/08/2024 drug scree n, urine MDMA: negati ve Not Available [facility] [address], [place], [address], 04/08/2024 14:00:45 04/08/20 24 04/08/2024 drug scree n, urine MTD (Methadone): negati ve Not Available [facility] [address], [place], [address], 04/08/2024 14:00:45 04/08/20 24 04/08/2024 drug scree n, urine [id number] (Opiate): negati ve Not Available [facility] [address], [place], [address], 04/08/2024 14:00:45 04/08/20 24 04/08/2024 drug scree n, urine OXY (Oxycodone): negati ve Not Available [facility] [address], [place], [address], 04/08/2024 14:00:45 04/08/20 24 04/08/2024 drug scree n, urine TCA: negati ve Not Available [facility] [address], [place], [address], 04/08/2024 14:00:45 04/08/20 24 04/08/2024 drug scree n, urine THC: positi ve Not Available [facility] [address], [place], [address], 04/08/2024 14:00:45 04/08/20 24 04/08/2024 drug scree n, urine Temperature: 90 Not Available [facility] [address], [place], [address], 04/08/2024 14:00:45 05/10/20 24 10/24/2022 MRI, neck No observ ation record ed. [email or web address] Not Available 05/10 00:04:40 05/10/2010/24/2022 imagi ng/di agnos tic resul t No observ ation record ed. [email or web address] Not Available 05/10 00:04:44 Result Notes None recorded. Problems Name Problem SNOMED Code Status Onset Date Resolution Date Notes Provider Name and Address Organization Details Recorded Time Nicotine dependen ce 95518106 Active 201508/30/19 23 - Comments only - Wes Goddard MD - [facility] ed cessatio n, congratu lated on success so far. Problem Code: F17.209; Problem Code Type: ICD-10; SHAKIR CARMICHAEL [address], [place], [address] , [facility] 4 16:38:28 Opioid abuse 4567689 Completed 201502/24/2024 Problem Code: F11.10; Problem Code Type: ICD-10; [address], [place], [address] , [facility] 4 14:38:12 Infectio n by methicil vernon sensitiv e Staphylo coccus aureus 450796932 Completed 201507/09/2016 06/17/20 16 - Comments only [...] A49.01; Problem Code Type: ICD-10; Not Available [facility] 3 05:16:01 Yazan de la rosa 54453260 Active 2017 Problem Code: M21.40; Problem Code Type: ICD-10; [address], [place], [address] , [facility] 4 16:38:32 Low back pain 890959704 Active 201704/23/20 18 - Comments only - Kristen Noland MD - I think he would benefit from physical therapy for his chronic low back pain as well. Problem Code: M54.5; Problem Code Type: ICD-10; [address], [facility] [address] , [facility] 4 16:38:23 [place]if[place] fuchsuris 792974219 Completed 201702/24/2024 04/23/20 18 - Comments only - Kristen Noland MD - Trial of 2% ketocona zole cream Problem Code: B35.6; Problem Code Type: ICD-10; [address], [place], [address] , [facility] 4 16:38:01 Neck pain 22647066 Active 2022 Problem Code: M54.2; Problem Code Type: ICD-10; [address], [facility] [address] , [facility] 4 16:38:25 Elevated blood-pr essure reading without diagnosi s of hyperten fina 596045194 Active 2022 Problem Code: R03.0; Problem Code Type: ICD-10; [address], [facility] [address] , [facility] 4 16:38:19 Cervical radiculo ricky 65257888 Active 2022 Problem Code: M54.12; Problem Code Type: ICD-10; [address], [facility] [address] , [facility] 4 16:38:16 Imaging result abnormal 766791698 Completed 202202/24/2024 Problem Code: R93.89; Problem Code Type: ICD-10; [address] Dr, [facility] [address] , [facility] 4 16:38:35 Anxiety 48913742 Completed 201506/17/2016 Problem Code: F41.8; Problem Code Type: ICD-10; Not Available [facility] 3 05:16:09 Cellulit is 028702900 Completed 201506/17/2016 Problem Code: L03.90; Problem Code Type: ICD-10; Not Available [facility] 3 05:16:11 Right lower quadrant pain 749806483 Completed 201708/30/2022 Problem Code: R10.31; Problem Code Type: ICD-10; Not Available [facility] 3 05:16:13 Fatigue 08578103 Active [address], [facility] [address] , [facility] 4 16:38:21 Attentio n deficit hyperact ivity disorder 473805869 Active [address], [facility] [address] , [facility] 4 16:38:13 Verruca vulgaris 07563747 Active [address], [facility] [address] , [facility] 4 16:40:08 Hypothyr oidism 06467949 Active [address], [facility] [address] , [facility] 4 14:07:34 Attentio n deficit hyperact ivity disorder , predomin antly inattent adonis type 73002046 Active [address], [place], [address] , [facility] 4 13:58:56 Goiter 5385381 Active [address], [place], [address] , [facility] 4 14:17:43 Problem Notes None recorded. Procedures Surgical History None recorded. Imaging Results Imaging Date Name Status LastModified by Organiz ation Details LastModified Time 10/24/2022 MRI, neck completed [email or web address] Information no t available 05/10/2024 00:04:40 10/24/2022 imaging/diag nostic result completed [email or web address] Information not available 05/10/2024 00:04:44 Procedure Notes None recorded. Medical Equipment None Reported. [...] and Address Organization Details Last Updated DateTime 4 174.62 cm 31.5 kg/m2 31814.5 8 g 99 [degF] 80 /min 14 /min 146 mm[Hg] 90 mm[Hg] TUYET CHAMPAGNE RN [place] [facility]. 4 14:22:30 Date Recorded Body height Body mass index (BMI) Body weight Body temperature Heart rate Respiratory rate Systolic blood pressure Diastolic blood pressure Provider Name and Address Organization Details Last Updated DateTime 4 174.62 cm 30.4 kg/m2 46276.2 8 g 98.6 [degF] 72 /min 16 /min 122 mm[Hg] 74 mm[Hg] TUYET CHAMPAGNE RN [facility] 13:48:02 Social History Question Answer Notes LastModified by Organizat ion Details LastModified Time Tobacco Smoking Status Current Every Day Smoker TUYET CHAMPAGNE RN [facility], [facility] 04/08/2024 13:45:13 Do You Or Have [...] Recorded Time Tdap 06/17/2016 completed Not Available [facility] 06:11:27 Influenza, split virus, trivalent, preservative 06/17/2016 completed Not Available [facility] 07/04/2023 06:11:27 SARS-COV-2 (COVID-19) vaccine, UNSPECIFIED 01/18/2021 completed Not Available [facility] 07/04/2023 06:11:27 SARS-COV-2 (COVID-19) vaccine, UNSPECIFIED 02/05/2021 completed Not Available [facility] 07/04/2023 06:11:28 Past Encounters Encounter ID Performer Location Encounter Start Date Encounter Closed Date Diagnosis/Indication Diagnosis SNOMED-CT Code Diagnosis ICD10 Code [id number] CLIFFORD STARKS [facility] [address] [place] [address] 02/24/2024 13:59:04 02/24/2024 14:56:04 Elevated blood-pressure reading without diagnosis of hypertension 264035513 R03.0 Cervical radiculopathy 42184736 M54.12 Fatigue 75203025 R53.83 Attention deficit hyperactivity disorder 505326212 F90.9 Verruca vulgaris 4734648 3 B07.9 [id number] Samina Wright RN [facility] [address] [place] [address] 03/03/2024 09:11:15 03/03/2024 09:23:11 Fatigue 70462934 R53.83 [id number] CLIFFORD STARKS [facility] [address] [place] [address] 04/08/2024 13:33:22 04/08/2024 14:58:19 Hypothyroidism 22644858 E03.9 Attention deficit hyperactivity disorder, 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 F90.0 Cervical radiculopathy 30641155 M54.12 Verruca vulgaris 4892290 3 B07.9 Goiter 7787142 E04.9 Health Concerns Section Related Observation LastModified by Organization Detai ls LastModified Time None Recorded Concern Status LastModified by Organization Details LastModified Time None Recorded Advance Directives Directive None Recorded Payers Encounter Date Sequence Insurance Name Policy Number Policy Webb Covered Member ID Webb Member ID Guarantor Name 02/24/2024 1 [facility] Yunior Izquierdo [id number] Yunior Izquierdo 03/03/2024 1 [facility] Yunior Izquierdo [id number] Yunior Izquierdo 04/08/2024 1 [facility] Yunior Izquierdo [id number] Yunior Izquierdo Notes Date Note Type Note Provider Name and Address Organization Details Recorded Time 02/24/2024 text/html HPI Notes: Sunny hubbard is a pleasant 38-year-old male here today for check-in follow-up chronic conditions. Pt last seen in office 09/18/22 for neck pain, cervical radiculopathy. Has not returned since as it wasn't bothering him. Recently took a Lyrica of his father's once when his neck was bothering him and said he felt great relief. 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 Says Lyrica also helped with that. did have one injection at [facility] and it was somewhat helpful. but not really lasted. last done in November 2022. 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 Of course work is aggravating his symptoms. Current symptoms are that he feels a pinch that is sharp in his neck and then he gets pain that radiates down the back of his left tricep and then wraps around to the ventral side of left forearm down to his wrist. Pain is daily. Pain is intermittently aggravated with certain terms of his head. Pain is aggravated with lifting anything heavy with left arm. Pain is aggravated with certain positions of sleep. He has tried Flexeril and tizanidine in the past and those were not helpful. 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 Denies any vision changes or headaches. Reports that he noticed that the pain started about 5 or 6 years ago after sleeping wrong. It has progressively gotten worse over the years. MRI completed on 10/2022. ?ADHD - says he was diagnosed as a kid but his mother did not want him on medication. Has not been recently assessed. Feels that he is having a hard time with focusing on multiple things at home and work. Gets frustrated with patience and focus. Feels like he's always running and can't relax. Diagnosed when in middle school but never on medicaton for it. Does have history of opioid abuse in college. clean for 12 years now. is very aware of addiction potential. BP elevated again today at visit. 146/90. Denies chest pain chest tightness shortness of breath vision changes or edema. Reports BP normal at recent ER visit on 12/25/23 for ankle strain. Also has wart on abdomen that has grown and wants removed. CLIFFORD STARKS, PROMOTIONAL MODEL [address], [place], [address], [facility]. 02/25/2024 10:50:28 04/08/2024 text/html HPI Notes: Sunny hubbard is [...] cryo therapy today. Has treated it with qzeh-uos-wevggar topicals and it has actually calmed down a little bit. Denies chest pain, chest tightness, headaches, vision changes, balance issues, changes in vision, edema, swelling, weakness. SHAKIR CARMICHAEL [address], [place], [address], [facility]. 04/08/2024 20:40:09
--- NOTE | 2024-05-16 08:40 | W.ED.GENAD ---
Discharge Plan Disposition Patient Disposition: Home Condition: Stable Discharge Details Clinical Impression: Cervical radiculopathy Primary Care Provider: Francesca Moore ED Provider: Yunior Noguera Home Meds and New Rx's Prescriptions: New ketorolac 10 mg tablet 10 mg PO QID 5 Days Qty: 19 0RF Rx Instructions: maximum total duration of 5 days from all oral, intranasal, or parenteral formulations methocarbamol 750 mg tablet 750 mg PO QID 5 Days Qty: 20 0RF prednisone 20 mg tablet 40 mg PO DAILY 5 Days Qty: 10 0RF Continued dextroamphetamine-amphetamine 30 mg capsule,extended release 24hr 30 mg PO DAILY Patient Comments: TAKE ONE CAPSULE BY MOUTH EVERY MORNING pregabalin 200 mg capsule 200 mg PO DAILY Patient Comments: TAKE ONE CAPSULE BY MOUTH EVERY MORNING FOR CERVICAL RADICULOPATHY levothyroxine 50 mcg tablet 50 mcg PO DAILY Patient Comments: TAKE ONE TABLET BY MOUTH EVERY DAY IN THE MORNING FOR HYPOTHYROIDISM Discharge Instructions Instructions: Ketorolac (Systemic), Methocarbamol, Prednisone, Radiculopathy of the neck and back (including sciatica) Additional Instructions: You were seen in the emergency department for acute on chronic cervical radiculopathy, your left lateral neck muscles are in spasm likely causing your symptoms. Please take 1000 mg of Tylenol every 6 hours without missing doses for at least the next 5 days, half-way between Tylenol doses please take the prescribed ketorolac which is a powerful anti-inflammatory. Take the prescribed methocarbamol for nondrowsy muscle relaxation 4 times per day, take the prescribed prednisone burst for the next 5 days to help with anti-inflammatory effects in the central nervous system. Apply an [id number] lidocaine patch to your left neck each night for 12 hours, you may purchase topical Voltaren gel or topical diclofenac for topical anti-inflammatory effects during the day, apply gentle heat and ice to the area and gentle massage. I have given you a referral to physical therapy they may be able to help you with exercises to help with your cervical radiculopathy, I placed you on the follow-up list for the pain clinic for possible injections but you may need a referral from your primary care provider to see spinal physician. Please return to the emergency department for any paralysis of left upper extremity, vertigo, visual changes or other concerning neurological symptoms. Stand Alone Forms: Physical Therapy Referral Referrals: [facility] [Provider Group] Francesca Moore [Primary Care Provider] - HPI General Date/Time Provider Initiated Documentation: 05/16/24 08:31. HPI Narrative: 39 year-old male presents to ED today by POV/ambulating with a chief complaint of acute on chronic L lateral neck pain, after exacerbating an old injury when he caught himself from a wobbly ladder climbing over the ladder onto the roof last week- also reports sleeping on his neck wrong and having stiffness with onset for the past 2 nights. Quality described as stiffness, no radiation to numbness down the arm, midline neck pain, visual changes, severe headache, coordination difficulty, paralysis. Severity is described as moderate. Palliating factors include nothing specific beyond OTC analgesics attempted. Provoking factors include sudden movements. Events leading up to the incident/Associated Symptoms: Patient has had spinal steroid injection last year for prior acute exacerbation of his longstanding neck issues. Patient not anticoagulated. Related Data Home Medications ?Medication ?Instructions ?Recorded ?Confirmed dextroamphetamine-amphetamine ER 30 mg PO DAILY 05/16/24 05/16/24 30 mg 24hr capsule,extend release ketorolac 10 mg tablet 10 mg PO QID 5 days #19 tabs 05/16/24 levothyroxine 50 mcg tablet 50 mcg PO DAILY 05/16/24 05/16/24 methocarbamol 750 mg tablet 750 mg PO QID 5 days #20 tabs 05/16/24 prednisone 20 mg tablet 40 mg (2 x 20 mg) PO DAILY 5 days 05/16/24 #10 tabs pregabalin 200 mg capsule 200 mg PO DAILY 05/16/24 05/16/24 Previous Rx's ?Medication ?Instructions ?Recorded ketorolac 10 mg tablet 10 mg PO QID 5 days #19 tabs 05/16/24 methocarbamol 750 mg tablet 750 mg PO QID 5 days #20 tabs 05/16/24 prednisone 20 mg tablet 40 mg (2 x 20 mg) PO DAILY 5 days 05/16/24 #10 tabs Allergies Allergy/AdvReac Type Severity Reaction Status Date / Time No Known Allergies Allergy Unverified 05/16/24 08:29 General Stated Complaint: Nk/Back Pain FRANTZ: 4 Review of Systems All systems reviewed & are unremarkable except as noted in HPI and below Exam Narrative Exam Narrative: GENERAL APPEARANCE: Well-nourished, non-toxic, awake and alert, atraumatic, no acute distress. SKIN: Warm, pink, dry, intact, without rashes/lesions/ulcerations. HEAD: Normocephalic, atraumatic, normal hair distribution for gender/age. EYES: Normal conjunctiva, no exudates on lids/lashes. ENT: Nares patent, no circumoral cyanosis, no facial swelling NECK: Supple, trachea midline, painless cervical ROM, L lateral scalenes/trapezius muscle tension. LUNGS/CHEST: Non-labored respirations, normal A/P diameter, symmetrical expansion, no chest wall deformity HEART (CV/PV): No peripheral edema, no JVD. ABDOMEN: Soft, non-distended, no guarding. MSK: Normal ROM, no swelling/deformity to bilateral UEs or LEs, moving all extremities without weakness, no cyanosis, spine midline without tenderness, normal curvature. NEURO: Mental Status AAOx4 - alert to person, place, time, events No facial droop, no forehead involvement. Motor: No focal weakness - strength 5/5 in bilateral UEs and LEs, proximal and distal, symmetric. Sensory: sensation intact to light touch globally. Gait normal: patient ambulated without ataxia into ED room. PSYCH: euthymic, cooperative, pleasant, appropriate speech Course Vital Signs Vital signs: Vital Signs Pulse 66 05/16/24 08:25 Respiratory Rate 14 05/16/24 08:25 Blood Pressure 149/90 H 05/16/24 08:25 Pulse 66 05/16/24 08:25 Respiratory Rate 14 05/16/24 08:25 Respiratory Effort Normal, Non-Labored 05/16/24 08:30 Blood Pressure 149/90 H 05/16/24 08:25 Blood Pressure Position Sitting 05/16/24 08:25 Oxygen Delivery Method Room Air 05/16/24 08:25 Oxygen Flow Rate 0 05/16/24 08:25 Pain Level 8 05/16/24 08:31 Medical Decision Making This dictation utilizes [id number] dictation software and may contain unedited grammatical errors. 39 year-old male presents to ED today by POV/ambulating with a chief complaint of acute on chronic L lateral neck pain, after exacerbating an old injury when he caught himself from a wobbly ladder climbing over the ladder onto the roof last week- also reports sleeping on his neck wrong and having stiffness with onset for the past 2 nights. Quality described as stiffness, no radiation to numbness down the arm, midline neck pain, visual changes, severe headache, coordination difficulty, paralysis. Severity is described as moderate. Palliating factors include nothing specific beyond OTC analgesics attempted. Provoking factors include sudden movements. Events leading up to the incident/Associated Symptoms: Patient has had spinal steroid injection last year for prior acute exacerbation of his longstanding neck issues. Patients' medical history: Cervical radiculopathy, otherwise noncontributory. 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 Pertinent exam findings / vital signs include neurovascularly intact in the left upper extremity, no midline vertebral tenderness/crepitus/step-offs, left lateral neck muscle tension in the trapezius, vision grossly intact. Differential / pathologies of concern include cervical radiculopathy, muscle spasm of neck. Diagnostic studies of: -None. Interventions of: -Rx for Toradol, methocarbamol, prednisone burst. ED Course/Assessment/Plan: 39-year-old male presents with acute on chronic left lateral neck pain after catching himself from a sudden fall using a ladder to get onto a roof and then it was exacerbated further sleeping on his neck around days later, he has palpable muscle tension in the left lateral neck with no signs of neurovascular compromise of left upper extremity or any severe paralysis or paresthesias, I counseled him on aggressive medication regimen and heat ice application and gentle massage to the area, provided PT referral as well as placed him on the follow-up list for pain clinic as he is interested in possible injections over other therapies, I counseled him on following up with his PCP for referral to spine at some point, strict return criteria for any signs of neurovascular compromise. Findings not consistent with paralysis, cord syndrome, focal neurologic complaint. Disposition of cervical radiculopathy. Patient verbalized understanding of the plan and return to ED criteria and engaged in shared decision making. Medical Records Medical records reviewed: Yes I reviewed the patient's medical records. Quality:SDOH Health Related Social Needs: No Data to Display PFSH All Active Problems (Updated 05/16/24 @ 08:51 by HILLARY Cobb) Cervical radiculopathy (Acute) Medical History (Updated 05/16/24 @ 08:51 by HILLARY Cobb) No significant past medical history Surgical History (Updated 08/26/22 @ 10:46 by Ivon Chang DO) No significant past surgical history Social History Smoking/Tobacco Use Status: Current every day Tobacco Type: smokeless tobacco Smoking risk assessment performed?: Yes Alcohol Intake: current Alcohol Intake frequency: a few times a week Alcohol type: beer Drug use: Daily Substance use type: marijuana Housing: house Do you feel safe at home: Yes Do you feel safe in your relationship?: Yes
--- OUTSIDE RECORDS SUMMARY | 2024-05-16 08:40 | XMS_ITS | Clinical Summary ---
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 Name Role Phone Unavailable Primary Care Provider Unavailabl e Social History Tobacco Use Types Packs/Day Years Used Date Smoking Tobacco: Never Assessed Sex and Gender Information Value Date Recorded Sex Assigned at Not on file Gender Identity Not on file Sexual Orientation Not on file Plan of Treatment Health Maintenance Due Date Last Done Comments Hepatitis B Vaccine (1 of 3 - 19+ 3-dose series) 03/05 COVID-19 Vaccine (2022-24 season) 2023 Hepatitis C Screen Completed 08/30/2022 Procedures Procedure Name Priority Date/Time Associated Diagnosis Comments HEPATITIS C AB W REFLEX TO HCV RNA BY PCR Routine 08/30/2022 15:40 EST from Last 3 Months or Most Recently Relevant to Health Maintenance Results * HEPATITIS C AB W REFLEX TO HCV RNA BY PCR (08/30/2022 15:40 EST) Hep C Antibody Negative Negative 09/02/2022 9:01 EST [facility] Blood VENOUS BLOOD / Unknown 08/30/2022 15:40 EST 09/01/2022 17:02 EST Provider Outr Resulting Lab CHEMISTRY & BLOOD GAS ORDERABLES [facility] [address] [place] [address] from Last 3 Months or Most Recently Relevant to Health Maintenance
--- OUTSIDE RECORDS SUMMARY | 2024-05-16 08:40 | XMS_ITS | Continuity of Care Document ---
Author Organization [facility] Address [address] [place] [address] Assessment No assessment recorded. Plan of Treatment Reminders Order Date Submit Date Provider Last Modified By Organization Details Last Modified Time Details Appointments Follow Up 2023 01:30P M Not available Not available Not available Lab CMP, serum or plasma 2023 024 [facility], [address], [place], [address], 03/03/2024 19:23:47 CBC w/ auto diff 2023 024 [facility], [address], [place], [address], 03/03/2024 18:01:30 TSH, serum, reflex free T4 2023 024 [email or web address] [facility], [address], [place], [address], 03/04/2024 09:29:07 testoste hany, free + total, serum 2023 024 [facility], [address], [place], [address], 03/17/2024 17:05:02 vitamin D, 25-hydro xy, total, serum 2023 024 NIKI [facility], [address], [place], [address], 03/03/2024 19:23:48 Referral None recorded . Procedures None recorded . Surgeries None recorded . Imaging None recorded . Medication Orders None recorded . Patient TargetsNo targets recorded. Patient InstructionsNo instructions recorded. Reason for Referral None Reported. Results Created Date Observation Date Name Description Value Unit Range Abnormal Flag Note LastModifiedBy Organization Detail LastModifiedTime 05/10/2010/24/2022 MRI, neck No observ ation record ed. [email or web address] Not Available 05/10 00:04:40 05/10/2010/24/2022 imagi ng/di agnos tic resul t No observ ation record ed. [email or web address] Not Available 05/10 00:04:44 Result Notes None recorded. Problems Name Problem SNOMED Code Status Onset Date Resolution Date Notes Provider Name and Address Organization Details Recorded Time Nicotine dependen ce 67911427 Active 201508/30/19 23 - Comments only - Wes Goddard MD - [facility] ed cessatio n, congratu lated on success so far. Problem Code: F17.209; Problem Code Type: ICD-10; SHAKIR CARMICHAEL [address], [place], [address] , [facility] 4 16:38:28 Opioid abuse 2701431 Completed 201502/24/2024 Problem Code: F11.10; Problem Code Type: ICD-10; [address], [place], [address] , [facility] 4 14:38:12 Infectio n by methicil vernon sensitiv e Staphylo coccus aureus 324042823 Completed 201507/09/2016 06/17/20 16 - Comments only - Kristen Noland MD - I explaine d to him that there is no evidence that treating staph carriers dianaen gabriel eliminat es the staff. However given that [...] Code Type: ICD-10; Not Available [facility] 3 05:16:01 Yazan de la rosa 23038868 Active 2017 Problem Code: M21.40; Problem Code Type: ICD-10; SHAKIR [address] Dr, [facility] [address] , [facility] 4 16:38:32 Low back pain 127525924 Active 201704/23/20 18 - Comments only - Kristen Noland MD - I think he would benefit from physical therapy for his chronic low back pain as well. Problem Code: M54.5; Problem Code Type: ICD-10; SHAKIR [address] Dr, [facility] [address] , [facility] 4 16:38:23 Tinea cruris 362908471 Completed 201702/24/2024 04/23/20 18 - Comments only - Kristen Noland MD - Trial of 2% ketocona zole cream Problem Code: B35.6; Problem Code Type: ICD-10; SHAKIR [address] Dr, [facility] [address] , [facility] 4 16:38:01 Neck pain 62188158 Active 2022 Problem Code: M54.2; Problem Code Type: ICD-10; SHAKIR CAR[address] Dr, [facility] [address] , [facility] 4 16:38:25 Elevated blood-pr essure reading without diagnosi s of hyperten fina 574143240 Active 2022 Problem Code: R03.0; Problem Code Type: ICD-10; SHAKIR CAR[address] Dr, [facility] [address] , [facility] 4 16:38:19 Cervical radiculo ricky 09339541 Active 2022 Problem Code: M54.12; Problem Code Type: ICD-10; [address], [place], [address] , [facility] 4 16:38:16 Imaging result abnormal 252190965 Completed 202202/24/2024 Problem Code: R93.89; Problem Code Type: ICD-10; SHAKIR [address] Dr, [facility] [address] , [facility] 4 16:38:35 Anxiety 87860087 Completed 201506/17/2016 Problem Code: F41.8; Problem Code Type: ICD-10; Not Available [facility] 3 05:16:09 Cellulit is 165435090 Completed 201506/17/2016 Problem Code: L03.90; Problem Code Type: ICD-10; Not Available [facility] 3 05:16:11 Right lower quadrant pain 760285009 Completed 201708/30/2022 Problem Code: R10.31; Problem Code Type: ICD-10; Not Available [facility] 3 05:16:13 Fatigue 07128489 Active [address], [place], [address] , [facility] 4 16:38:21 Attentio n deficit hyperact ivity disorder 667071043 Active [address], [facility] [address] , [facility] 4 16:38:13 Verruca vulgaris 10157430 Active [address], [facility] [address] , [facility] 4 16:40:08 Hypothyr oidism 57001219 Active [address], [place], [address] , [facility] 4 14:07:34 Attentio n deficit hyperact ivity disorder , predomin antly inattent keisha type 23943176 Active [address], [facility] [address] , [facility] 4 13:58:56 Goiter 8218412 Active [address], [place], [address] , [facility] 4 14:17:43 Problem Notes None recorded. Medical [...] Not Available Not Available Not Available Vitals None Recorded Social History Question Answer Notes LastModified by Organizat ion Details LastModified Time Tobacco Smoking Status Current Every Day Smoker TUYET CHAMPAGNE RN [facility], [place] - [facility]. 04/08/2024 13:45:13 Do You Or Have You [...] Relati ve: 'First Degree Blood Relati ve'; [email or web address] Not available 07/04/2023 03:54:35 Medical History No medical history recorded. Immunizations Vaccine Type Date Status Provider Name and Address Organization Details Recorded Time Tdap 06/17/2016 completed Not Available [facility] 06:11:27 Influenza, split virus, trivalent, preservative 06/17/2016 completed Not Available [facility] 07/04/2023 06:11:27 SARS-COV-2 (COVID-19) vaccine, UNSPECIFIED 01/18/2021 completed Not Available [facility] 07/04/2023 06:11:27 SARS-COV-2 (COVID-19) vaccine, UNSPECIFIED 02/05/2021 completed Not Available [facility] 07/04/2023 06:11:28 Past Encounters Encounter ID Performer Location Encounter Start Date Encounter Closed Date Diagnosis/Indication Diagnosis SNOMED-CT Code Diagnosis ICD10 Code [id number] SHAKIR CARMICHAEL [facility] [address] [place] [address] 02/24/2024 13:59:04 02/24/2024 14:56:04 Elevated blood-pressure reading without diagnosis of hypertension 386217490 R03.0 Cervical radiculopathy 92885732 M54.12 Fatigue 37284299 R53.83 Attention deficit hyperactivity disorder 784273643 F90.9 Verruca vulgaris 7710817 3 B07.9 [id number] Samina Wright RN [facility] [address] [place] [address] 03/03/2024 09:11:15 03/03/2024 09:23:11 Fatigue 54260316 R53.83 Health Concerns Section Related Observation LastModified by Organization Detai ls LastModified Time None Recorded Concern Status LastModified by Organization Details LastModified Time None Recorded Payers Encounter Date Sequence Insurance Name Policy Number Policy Webb Covered Member ID Webb Member ID Guarantor Name 03/03/2024 1 [facility] (MEDICAID) Yunior Izquierdo [id number] Yunior Izquierdo
--- OUTSIDE RECORDS SUMMARY | 2024-05-16 08:40 | XMS_ITS | Encounter Summary ---
Author Organization [facility] Address [address] [place] [address] Care Team Providers Care Supervisor Microfilm Duplicating Unit Name Role Phone Unavailable Primary Care Provider Unavailabl e Encounter Details Date Type Department Care Team (Late st Contact Info) Description 09/01/2022 Lab Requisition [facility] Pathology & Laboratory Medicine - [address] [address] Outr Resulting Lab, Provider Social History Tobacco Use Types Packs/Day Years Used Date Smoking Tobacco: Never Assessed Sex and Gender Information Value Date Recorded Sex Assigned at Not on file Gender Identity Not on file Sexual Orientation Not on file documented as of this encounter Plan of Treatment Not on file documented as of this encounter Procedures Procedure Name Priority Date/Time Associated Diagnosis Comments HIV 1/2 ANTIGEN AND ANTIBODY, 4TH GENERATION Routine 08/30/2022 15:40 EST documented in this encounter Results * HIV 1/2 ANTIGEN AND ANTIBODY, 4TH GENERATION (08/30/2022 15:40 EST) HIV 1 and 2 Antibody/p24 Antigen, 4th Generation Negative Negative 09/02/2022 9:44 EST [facility] Comment:If acute HIV-1 infec tion is suspected in a high risk patient, submit plasma specimen for HIV-1 RNA quantitation test. Blood VENOUS BLOOD / Unknown 08/30/2022 15:40 EST 09/01/2022 17:07 EST Narrative [facility] - 09/02/2022 9:44 EST Fourth Generation assay performed on the Siemens Centaur XPT. Provider Outr Resulting Lab IMMUNOLOGY A ND SEROLOGY ORDERABLES [facility] [address] [place] [address] documented in this encounter Visit Diagnoses Not on filedocumented in this encounter
--- OUTSIDE RECORDS SUMMARY | 2024-05-16 08:40 | XMS_ITS | Continuity of Care Document ---
Author Organization [facility] Address [address] [place] [address] Assessment No assessment recorded. Plan of Treatment Reminders Order Date Submit Date Provider Last Modified By Organization Details Last Modified Time Details Appointments Follow Up 2023 01:30P M Not available Not available Not available Lab CMP, serum or plasma 2023 024 [facility], [address], [place], [address], 03/03/2024 19:23:47 CBC w/ auto diff 2023 024 [facility], [address], [place], [address], 03/03/2024 18:01:30 TSH, serum, reflex free T4 2023 024 [email or web address] [facility], [address], [place], [address], 03/04/2024 09:29:07 testoste hany, free + total, serum 2023 024 [facility], [address], [place], [address], 03/17/2024 17:05:02 vitamin D, 25-hydro xy, total, serum 2023 024 [facility], [address], [place], [address], 03/03/2024 19:23:48 Referral None recorded . Procedures None recorded . Surgeries None recorded . Imaging None recorded . Medication Orders Lyrica 50 mg capsule 2023 024 NIKI [facility], [address] [facility], [place], [address], 03/18/2024 14:48:26 Patient TargetsNo targets recorded. Patient InstructionsNo instructions [...] Organization Details Recorded Time Nicotine dependen ce 14407465 Active 201508/30/19 23 - Comments only - Wes Goddard MD - [facility] ed cessatio n, congratu lated on success so far. Problem Code: F17.209; Problem Code Type: ICD-10; SHAKIR CARMICHAEL [address], [place], [address] , [facility] 4 16:38:28 Opioid abuse 7625183 Completed 201502/24/2024 Problem Code: F11.10; Problem Code Type: ICD-10; [address], [place], [address] , [facility] 4 14:38:12 Infectio n by methicil vernon sensitiv e Staphylo coccus aureus 507407698 Completed 201507/09/2016 06/17/20 16 - Comments only [...] A49.01; Problem Code Type: ICD-10; Not Available [facility] 3 05:16:01 Yazan de la rosa 09897415 Active 2017 Problem Code: M21.40; Problem Code Type: ICD-10; [address], [place], [address] , [facility] 4 16:38:32 Low back pain 755744833 Active 201704/23/20 18 - Comments only - Kristen Noland MD - I think he would benefit from physical therapy for his chronic low back pain as well. Problem Code: M54.5; Problem Code Type: ICD-10; SHAKIR [address] Dr, [facility] [address] , [facility] 4 16:38:23 Tinea cruris 157707616 Completed 201702/24/2024 04/23/20 18 - Comments only - Kristen Noland MD - Trial of 2% ketocona zole cream Problem Code: B35.6; Problem Code Type: ICD-10; SH[address], [place], [address] , [facility] 4 16:38:01 Neck pain 02155086 Active 2022 Problem Code: M54.2; Problem Code Type: ICD-10; SH[address], [place], [address] , [facility] 4 16:38:25 Elevated blood-pr essure reading without diagnosi s of hyperten fina 003319104 Active 2022 Problem Code: R03.0; Problem Code Type: ICD-10; SH[address], [place], [address] , [facility] 4 16:38:19 Cervical radiculo ricky 87550655 Active 2022 Problem Code: M54.12; Problem Code Type: ICD-10; SHAKIR CAR[address] Dr, [facility] [address] , [facility] 4 16:38:16 Imaging result abnormal 523282226 Completed 202202/24/2024 Problem Code: R93.89; Problem Code Type: ICD-10; SH[address], [place], [address] , [facility] 4 16:38:35 Anxiety 66711712 Completed 201506/17/2016 Problem Code: F41.8; Problem Code Type: ICD-10; Not Available [facility] 3 05:16:09 Cellulit is 687197732 Completed 201506/17/2016 Problem Code: L03.90; Problem Code Type: ICD-10; Not Available [facility] 3 05:16:11 Right lower quadrant pain 221441220 Completed 201708/30/2022 Problem Code: R10.31; Problem Code Type: ICD-10; Not Available [facility] 3 05:16:13 Fatigue 82481639 Active [address], [place], [address] , [facility] 4 16:38:21 Attentio n deficit hyperact ivity disorder 086711890 Active [address], [place], [address] , [facility] 4 16:38:13 Verruca vulgaris 57429965 Active [address], [place], [address] , [facility] 4 16:40:08 Hypothyr oidism 44890067 Active [address], [facility] [address] , [facility] 4 14:07:34 Attentio n deficit hyperact ivity disorder , predomin antly inattent keisha type 94135589 Active [address], [facility] [address] [place] [address] 4 13:58:56 Goiter 6334059 Active [address], [facility] [address] , [facility] 4 14:17:43 Problem Notes None [...] Updated DateTime 4 174.62 cm 31.5 kg/m2 10171.5 8 g 99 [degF] 80 /min 14 /min 146 mm[Hg] 90 mm[Hg] TUYET CHAMPAGNE RN [place] - [facility] 4 14:22:30 Social History Question Answer Notes LastModified by Organizat ion Details LastModified Time Tobacco Smoking Status Current Every Day Smoker TUYET CHAMPAGNE RN [facility], [place] - [facility] 04/08/2024 13:45:13 Do You Or [...] Recorded Time Tdap 06/17/2016 completed Not Available [facility] 06:11:27 Influenza, split virus, trivalent, preservative 06/17/2016 completed Not Available [facility] 07/04/2023 06:11:27 SARS-COV-2 (COVID-19) vaccine, UNSPECIFIED 01/18/2021 completed Not Available [facility] 07/04/2023 06:11:27 SARS-COV-2 (COVID-19) vaccine, UNSPECIFIED 02/05/2021 completed Not Available [facility] 07/04/2023 06:11:28 Past Encounters Encounter ID Performer Location Encounter Start Date Encounter Closed Date Diagnosis/Indication Diagnosis SNOMED-CT Code Diagnosis ICD10 Code [id number] SHAKIR CARMICHAEL [facility] [place] [address] 02/24/2024 13:59:04 02/24/2024 14:56:04 Elevated blood-pressure reading without diagnosis of hypertension 205010866 R03.0 Cervical radiculopathy 67914276 M54.12 Fatigue 36848746 R53.83 Attention deficit hyperactivity disorder 437327653 F90.9 Verruca vulgaris 1556356 3 B07.9 Health Concerns Section Related Observation LastModified by Organization Darylyeimi ls LastModified Time None Recorded Concern Status LastModified by Organization Details LastModified Time None Recorded Payers Encounter Date Sequence Insurance Name Policy Number Policy Webb Covered Member ID Webb Member ID Guarantor Name 02/24/2024 1 [facility] (MEDICAID) Yunior R Timbo [id number] Yunior Izquierdo Notes Date Note Type Note [...] with that. did have one injection at [facility] and it was somewhat [...] helpful. Denies any weakness in either hand sawyer cork slabs. Denies any vision changes or headaches. Reports [...] has grown and wants removed. CLIFFORD STARKS, WORKFORCE MANAGEMENT COORDINATOR [address], [place], [address], [place] - [facility]. 02/25/2024 10:50:28
--- OUTSIDE RECORDS SUMMARY | 2024-05-16 08:40 | XMS_ITS | Encounter Summary ---
Author Organization [facility] Address [address] [place] [address] Care Team Providers Care Flight Surveyor Name Role Phone Unavailable Primary Care Provider Unavailabl e Encounter Details Date Type Department Care Team (Late st Contact Info) Description 09/01/2022 Lab Requisition [facility] Pathology & Laboratory Medicine - [facility] [address] [place] [address] Outr Resulting Lab, Provider Social History Tobacco [...] RNA BY PCR Routine 08/30/2022 15:40 EST documented in this encounter Results * HEPATITIS C AB W REFLEX TO HCV RNA BY PCR (08/30/2022 15:40 EST) Hep C Antibody Negative Negative 09/02/2022 9:01 EST [facility] Blood VENOUS BLOOD / Unknown 08/30/2022 15:40 EST 09/01/2022 17:02 EST Provider Outr Resulting Lab CHEMISTRY & BLOOD GAS ORDERABLES [facility] [address] [place] [address] documented in this encounter Visit Diagnoses Not on filedocumented in this encounter
--- OUTSIDE RECORDS SUMMARY | 2024-05-16 08:40 | XMS_ITS | Referral Summary ---
Author Organization [facility] Address [address] [place] [address] Care Team Providers Care Foreign Student Adviser Name Role Phone Unavailable Primary Care Provider Unavailabl e Social History Tobacco Use Types Packs/Day Years Used Date Smoking Tobacco: Never Assessed Sex and Gender Information Value Date Recorded Sex Assigned at Not on file Gender Identity Not on file Sexual Orientation Not on file Plan of Treatment Not on file Procedures Procedure Name Priority Date/Time Associated Diagnosis Comments HEPATITIS C AB W REFLEX TO HCV RNA BY PCR Routine 08/30/2022 15:40 EST from Last 3 Months or Most Recently Relevant to Health Maintenance Results * HEPATITIS C AB W REFLEX TO HCV RNA BY PCR (08/30/2022 15:40 EST) Hep C Antibody Negative Negative 09/02/2022 9:01 EST [facility] Blood VENOUS BLOOD / Unknown 08/30/2022 15:40 EST 09/01/2022 17:02 EST Provider Outr Resulting Lab CHEMISTRY & BLOOD GAS ORDERABLES [facility] [address] [place] [address] from Last 3 Months or Most Recently Relevant to Health Maintenance
[2024-05-16] MEDS: Acetaminophen 500 MG TAB 1000 MG PO (09:12)
[2024-05-16] MEDS: Ketorolac 10 MG TAB PO (09:13)
[2024-05-16] MEDS: predniSONE 20 MG TAB 60 MG PO (09:13)
[2024-05-16] MEDS: Methocarbamol 750 MG TAB PO (09:13)
[2024-05-16] MEDS: Lidocaine 5% Patch 1 PATCH TP (09:13)
== END 2024-05-16 09:24 | disposition home or self-care (01) ==
PROVIDERS: Emergency Provider Physician Assistant; PCP Nurse Practitioner Family
DX: M54.12 Radiculopathy, cervical region (principal); F17.290 Nicotine dependence, other tobacco product, uncomplicated
CPT/HCPCS: 99283; J7512

== ENCOUNTER 2024-06-08 01:42 | Outpatient (CLI) | payer MEDICAID, SELFPAY ==
--- NOTE | 2024-06-08 13:30 | DI.US_ITS ---
Exam(s) US THYROID EXAM: US THYROID CLINICAL HISTORY: NONTOXIC GOITER, E04.9, NEW DIAGNOSIS HYPOTHYROIDISM, ENLARGED ERON THYROID. TECHNIQUE: Ultrasound thyroid performed using standard protocol. COMPARISON: No exams were available for comparison FINDINGS: ISTHMUS: 4 mm RIGHT LOBE: Size: 3.2 x 1.7 x 2.1 cm Echogenicity: Normal. Vascularity: Normal. Nodules: None. LEFT LOBE: Size: 3.8 x 1.6 x 1.5 cm Echogenicity: There is heterogeneity of the left thyroid but no definite discrete nodule is seen at t his time. Vascularity: Normal. Nodules: None. OTHER FINDINGS: None. IMPRESSION: Heterogeneity of the thyroid gland particularly on the left without definite discrete nodule. DATA REPOSITORY:
== END 2024-06-08 02:02 ==
LOC: DI 01:42
PROVIDERS: PCP Nurse Practitioner Family; Visit Provider Nurse Practitioner Family
DX: E04.9 Nontoxic goiter, unspecified (principal)
CPT/HCPCS: 76536

== ENCOUNTER 2024-07-19 16:30 | Outpatient (REF) | payer MEDICAID, SELFPAY ==
[2024-07-19 19:35] LABS: TSH (W/Ref FT4) 2.12 uIU/mL (0.36-3.74)
[2024-07-19 23:10] LABS: FREE T4 0.71 ng/dL (0.76-1.46)
== END 2024-07-19 16:31 | disposition home or self-care (01) ==
LOC: NCHCN 16:30
PROVIDERS: PCP Nurse Practitioner Family; Visit Provider Nurse Practitioner Family
DX: E03.9 Hypothyroidism, unspecified (principal)
CPT/HCPCS: 84439; 84443

== ENCOUNTER 2024-09-05 12:04 | Emergency (ER) | payer MEDICAID, SELFPAY ==
[2024-09-05 12:22] VITALS: BP 132/64; PULSE 88; RESP 18; TEMP 36.6; O2SAT 100
--- NOTE | 2024-09-05 12:45 | ED.GENADUL_ITS ---
Discharge Plan Disposition Patient Disposition: Home Condition: Stable Discharge Details Clinical Impression: Strep pharyngitis, Sinusitis Primary Care Provider: Francesca Moore ED Provider: Cleveland Woodson Home Meds and New Rx's Prescriptions: New amoxicillin-pot clavulanate 875-125 mg tablet 1 tab PO BID Qty: 19 0RF Continued dextroamphetamine-amphetamine 30 mg capsule,extended release 24hr 30 mg PO DAILY Patient Comments: TAKE ONE CAPSULE BY MOUTH EVERY MORNING pregabalin 200 mg capsule 200 mg PO DAILY Patient Comments: TAKE ONE CAPSULE BY MOUTH EVERY MORNING FOR CERVICAL RADICULOPATHY levothyroxine 50 mcg tablet 50 mcg PO DAILY Patient Comments: TAKE ONE TABLET BY MOUTH EVERY DAY IN THE MORNING FOR HYPOTHYROIDISM Discharge Instructions Additional Instructions: You are positive for strep. He also likely have a sinus infection If not improving with antibiotic this week follow-up with your primary care provider If you feel more ill, or unable to swallow liquids or have difficulty breathing return to the emergency department for reevaluation HPI General Mode of arrival: ambulatory . Date/Time Provider Initiated Documentation: 09/05/24 12:07 . Limitations to Documentation: no limitations . Information obtained by: patient . History of Present Illness 39 year old M presents to the emergency department with the chief complaint of sore throat, described as moderate, Patient started experiencing this week(s) (1) and it has been constant. No relieving factors improve symptom(s), No exacerbating factors reported . Patient notes denies fever/chills. Related Data Home Medications ?Medication ?Instructions ?Recorded ?Confirmed dextroamphetamine-amphetamine ER 30 mg PO DAILY 05/16/24 09/05/24 30 mg 24hr capsule,extend release levothyroxine 50 mcg tablet 50 mcg PO DAILY 05/16/24 09/05/24 pregabalin 200 mg capsule 200 mg PO DAILY 05/16/24 09/05/24 amoxicillin 875 mg-potassium 1 tab PO BID #19 tabs 09/05/24 clavulanate 125 mg tablet Previous Rx's ?Medication ?Instructions ?Recorded amoxicillin 875 mg-potassium 1 tab PO BID #19 tabs 09/05/24 clavulanate 125 mg tablet Allergies Allergy/AdvReac Type Severity Reaction Status Date / Time No Known Allergies Allergy Verified 09/05/24 12:37 General Stated Complaint: RespSymp FRANTZ: 4 Review of Systems All systems reviewed & are unremarkable except as noted in HPI and below Constitutional Constitutional: Denies chills, Denies fever(s) and Denies weakness ENT Ears, Nose, Mouth, and Throat: Reports sinus pain and Reports sore throat Cardiovascular Cardiovascular: Denies chest pain and Denies dyspnea Respiratory Respiratory: Denies cough and Denies dyspnea Gastrointestinal Gastrointestinal: Denies abdominal pain, Denies nausea and Denies vomiting Musculoskeletal Musculoskeletal: Denies joint swelling Neurologic Neurologic: Denies weakness Exam Const General: no acute distress Orientation: alert HENMT Head: normal to inspection Ears: external ears normal, TM's normal bilaterally and EAC's normal General nose exam: external nose normal Mouth: moist mucous membranes Throat: uvula midline Eyes General: appearance normal, both eyes and all related structures Neck Neck: normal visual inspection Resp Effort & Inspection: normal respiratory effort and able to speak in complete sentences Cardio Rate: regular rate Skin General skin exam: no rashes or lesions noted Neuro General: patient alert and patient oriented x3 Extrem General: normal to inspection Psych Mental Status: mental status grossly normal Course Vital Signs Vital signs: Vital Signs Temperature 36.6 C 09/05/24 12:22 Pulse 88 09/05/24 12:22 Respiratory Rate 18 09/05/24 12:22 Blood Pressure 132/64 09/05/24 12:22 Pulse Oximetry 100 09/05/24 12:22 Temperature 36.6 C 09/05/24 12:22 Pulse 88 09/05/24 12:22 Respiratory Rate 18 09/05/24 12:22 Respiratory Effort Normal 09/05/24 12:36 Respiratory Depth Normal 09/05/24 12:36 Blood Pressure 132/64 09/05/24 12:22 Pulse Oximetry 100 09/05/24 12:22 Oxygen Delivery Method Room Air 09/05/24 12:22 Oxygen Flow Rate 0 09/05/24 12:22 Pain Level 5 09/05/24 12:22 Lab/Test Results Lab/Test Results: POC Strep Test-MELODY(Rapid) Start: 09/05/24 12:40 Freq: .Rapid Strep Test Status: Active Protocol: Document 09/05/24 12:41 [facility] (Rec: 09/05/24 12[facility]41 [id number] Strep test-MELODY(Rapid)-POC POC-Strep test-MELODY (Rapid) Positive POC-Strep test-MELODY (Rapid) Positive Medical Decision Making 39-year-old male comes in with 1 week of sore throat and raspy voice. He denies any difficulty breathing or swallowing liquids. He has no fevers. He is well- appearing on exam with no stridor or drooling. His posterior pharynx is erythematous, no exudates, midline uvula, no submandibular swelling or pain over the hyoid restricted neck movements. He also notices some ear fullness and sinus pressure. His tympanic membrane's and external auditory canals are normal bilaterally. He is positive for strep. He also has had a week of sinusitis symptoms so we will treat with Augmentin. He is stable for discharge and will follow-up with his PCP or express care if not improving and return precautions given. He has no findings on exam or history to suggest entities such as epiglottitis, retropharyngeal abscess or peritonsillar abscess do not feel other lab work or imaging indicated. Differential Diagnosis Differential Diagnosis: Strep, COVID, flu, pharyngitis, sinusitis Quality:SDOH Health Related Social Needs: No Data to Display PFSH All Active Problems (Updated 09/05/24 @ 12:48 by Cleveland Woodson MD) Sinusitis (Acute) Strep pharyngitis (Acute) Medical History (Updated 09/05/24 @ 12:48 by Cleveland Woodson MD) No significant past medical history Surgical History (Updated 08/26/22 @ 10:46 by Ivon Chang DO) No significant past surgical history Social History Smoking/Tobacco Use Status: Current every day Tobacco Type: smokeless tobacco Smoking risk assessment performed?: Yes Alcohol Intake: current Alcohol Intake frequency: a few times a week Alcohol type: beer Drug use: Daily Substance use type: marijuana Housing: house Do you feel safe at home: Yes Do you feel safe in your relationship?: Yes
[2024-09-05] MEDS: Amoxicillin 875/Clav. 125 TAB PO (12:51)
== END 2024-09-05 13:06 | disposition home or self-care (01) ==
PROVIDERS: Emergency Provider Emergency Medicine; PCP Nurse Practitioner Family
DX: J02.0 Streptococcal pharyngitis (principal); J32.9 Chronic sinusitis, unspecified
CPT/HCPCS: 87880; 99283

== ENCOUNTER 2024-09-22 22:01 | Outpatient (REF) | payer MEDICAID, SELFPAY | END 2024-09-22 22:02 | disposition home or self-care (01) | LOC: LBN 22:01 | PROVIDERS: PCP Nurse Practitioner Family; Visit Provider Physician Assistant Medical | DX: J02.9 Acute pharyngitis, unspecified (principal) | CPT/HCPCS: 87077; 87070 ==

== ENCOUNTER 2024-10-14 00:53 | Outpatient (CLI) | payer MEDICAID, SELFPAY ==
--- NOTE | 2024-10-14 | DI.MRI_ITS ---
Exam(s) MR CERVICAL SPINE WO EXAM: MR CERVICAL SPINE WO CLINICAL HISTORY: Neck pain with radiation to LUE, M54.2, cervical radiculopathy, M54.12 TECHNIQUE: Multiplanar multisequence MRI of the cervical spine was performed without intravenous con trast. COMPARISON: MR MR CERVICAL SPINE WO from 10/24/2022 FINDINGS: BONES: Vertebral body heights are maintained. Intervertebral disc spaces are normal. Alignment is nor mal. Bone marrow signal intensity is within normal limits. CERVICAL CORD: Craniovertebral junction is unremarkable. The cervical cord is normal size and signal intensity. SOFT TISSUES: Unremarkable. C2-3: No disc herniation or bulge is identified. No significant central spinal canal or neural forami nal stenosis. C3-4: No disc herniation or bulge is identified. No significant central spinal canal or neural forami nal stenosis C4-5: There is prominence of the osteophyte disc complex with extension into the right neural foramen causing mild right neural foraminal stenosis. No significant central spinal canal or left neural fo raminal stenosis is present. C5-6: There is mild prominence of the left uncovertebral joint causing mild narrowing of the left mary ral foramen. No significant central spinal canal or right neural foraminal stenosis is present. C6-7: There is again seen a left lateral disc herniation which extends into the left neural foramen c ausing moderately severe left neural foraminal stenosis. No significant central spinal canal stenosi s is seen. No significant right neural foraminal stenosis is present. C7-T1: No disc herniation or bulge is identified. No significant central spinal canal or neural triny inal stenosis IMPRESSION: 1. Persistent left neural foraminal disc at C6-C7 causing moderately severe left neural foraminal georgina nosis. 2. Prominence of the left uncovertebral joint at C5-C6 causing mild left neural foraminal stenosis. 3. C4-5 osteophyte disc complex with extension into the right neural foramen causing mild right neura l foraminal stenosis. DATA REPOSITORY:
== END 2024-10-14 01:13 ==
LOC: DI 00:53
PROVIDERS: PCP Nurse Practitioner Family; Visit Provider Physical Medicine & Rehabilitation
DX: M50.123 Cervical disc disorder at C6-C7 level with radiculopathy (principal); M99.61 Osseous and subluxation stenosis of intervertebral foramina of cervical region
CPT/HCPCS: 72141

== ENCOUNTER 2024-11-03 22:40 | Outpatient (REF) | payer MEDICAID, SELFPAY | END 2024-11-03 22:41 | disposition home or self-care (01) | LOC: LBN 22:40 | PROVIDERS: PCP Nurse Practitioner Family; Visit Provider Physician Assistant Medical | DX: J02.9 Acute pharyngitis, unspecified (principal) | CPT/HCPCS: 87070 ==

== ENCOUNTER 2025-01-21 15:10 | Outpatient (REF) | payer MEDICAID, SELFPAY ==
[2025-01-21 15:54] LABS: TSH 8.13 uIU/mL (0.36-3.74)
[2025-01-22 04:55] LABS: FREE T4 0.76 ng/dL (0.76-1.46)
[2025-02-05 16:44] LABS: Testosterone, Total 241 ng/dL (240-950)
== END 2025-01-21 15:11 | disposition home or self-care (01) ==
LOC: NCHCN 15:10
PROVIDERS: PCP Nurse Practitioner Family; Visit Provider Physician Assistant
DX: R53.83 Other fatigue (principal)
CPT/HCPCS: 84402; 84403; 84439; 84443

== ENCOUNTER 2025-06-07 11:46 | Emergency (ER) | payer MEDICAID, SELFPAY ==
[2025-06-07 11:57] VITALS: BP 116/76; PULSE 65; RESP 16; TEMP 36.8; O2SAT 95
--- NOTE | 2025-06-07 12:15 | DI.RAD_ITS ---
Exam(s) XR FOOT RT COMPLETE EXAM: XR FOOT RT COMPLETE CLINICAL HISTORY: Right great toe pain. TECHNIQUE: 2D digital imaging was performed. Three views. COMPARISON: No exams were available for comparison FINDINGS: BONES: No acute fracture is present. No bony destructive lesion is seen. JOINTS: No dislocation present. There are no significant degenerative changes. SOFT TISSUE: Normal. IMPRESSION: Unremarkable radiographs of the right foot. DATA REPOSITORY: RADIATION DOSE DELIVERED:
--- NOTE | 2025-06-07 12:24 | W.ED.GENAD ---
Discharge Plan Disposition Patient Disposition: Home Condition: Stable Discharge Details Clinical Impression: Gout of right foot Primary Care Provider: Francesca Moore ED Provider: Deepti Austin Home Meds and New Rx's Prescriptions: New indomethacin 25 mg capsule 25 mg PO TID PRN (Reason: Foot pain) 7 Days Qty: 21 0RF Rx Instructions: Take 1 cap by mouth 3 times daily as needed for pain. administer with food or milk No Action dextroamphetamine-amphetamine 30 mg capsule,extended release 24hr 30 mg PO DAILY Patient Comments: TAKE ONE CAPSULE BY MOUTH EVERY MORNING pregabalin 200 mg capsule 200 mg PO DAILY Patient Comments: TAKE ONE CAPSULE BY MOUTH EVERY MORNING FOR CERVICAL RADICULOPATHY levothyroxine 50 mcg tablet 50 mcg PO DAILY Patient Comments: TAKE ONE TABLET BY MOUTH EVERY DAY IN THE MORNING FOR HYPOTHYROIDISM Discharge Instructions Instructions: Low Purine Diet, Gout ED Additional Instructions: X-rays are within normal limits. Please wear the postop shoe and crutches as needed for comfort. Elevate your foot when sitting or lying down. He may apply ice if helpful. Please take the medication as directed. Discussed with your primary care provider further care and treatment. Follow up with primary care provider in 3-5 days. Return to ED sooner if any worsening or concerns. Thank you for allowing us to care for you today. Referrals: Francesca Moore [Primary Care Provider, Medicine] - 5 days Referral Note: ER follow-up, call for appointment Clinical Impression: Gout of right foot HPI General Mode of arrival: ambulatory. Date/Time Provider Initiated Documentation: 06/07/25 12:02. Limitations to Documentation: no limitations. Information obtained by: patient, RN notes reviewed and old records reviewed. HPI Narrative: 40-year-old male presents to the ER with a chief complaint of right great toe joint swelling and erythema which began a few days ago. He reports no known injury however he was crouching on his foot for long periods of time recently while hunting. Does have a family history of gout and endorses daily alcohol. Related Data Home Medications ?Medication ?Instructions ?Recorded ?Confirmed dextroamphetamine-amphetamine ER 30 mg PO DAILY 05/16/24 06/07/25 30 mg 24hr capsule,extend release levothyroxine 50 mcg tablet 50 mcg PO DAILY 05/16/24 06/07/25 pregabalin 200 mg capsule 200 mg PO DAILY 05/16/24 06/07/25 indomethacin 25 mg capsule 25 mg PO TID PRN Foot pain 7 days 06/07/25 #21 caps Previous Rx's ?Medication ?Instructions ?Recorded indomethacin 25 mg capsule 25 mg PO TID PRN Foot pain 7 days 06/07/25 #21 caps Allergies Allergy/AdvReac Type Severity Reaction Status Date / Time No Known Allergies Allergy Verified 06/07/25 12:01 General Stated Complaint: Orthopedic FRANTZ: 4 Review of Systems Musculoskeletal Musculoskeletal: Reports as per HPI, Reports arthralgias and Reports joint swelling Exam Extrem Right lower extremity: foot Details: normal capillary refill and tenderness Location: of the great toe Location: at the MTP joint Ankle/foot/toe images:  1. Erythema and tenderness Course Vital Signs Vital signs: Vital Signs Temperature 36.8 C 06/07/25 11:57 Pulse 65 06/07/25 11:57 Respiratory Rate 16 06/07/25 11:57 Blood Pressure 116/76 06/07/25 11:57 Pulse Oximetry 95 06/07/25 11:57 Temperature 36.8 C 06/07/25 11:57 Pulse 65 06/07/25 11:57 Respiratory Rate 16 06/07/25 11:57 Blood Pressure 116/76 06/07/25 11:57 Pulse Oximetry 95 06/07/25 11:57 Oxygen Delivery Method Room Air 06/07/25 11:57 Oxygen Flow Rate 0 06/07/25 11:57 Medical Decision Making 40-year-old male presents to the ER with a chief complaint of right great toe joint swelling and erythema which began a few days ago. He reports no known injury however he was crouching on his foot for long periods of time recently while hunting. Does have a family history of gout and endorses daily alcohol. X-rays are within normal limits, will give a postop shoe and crutches. Will prescribe indomethacin. This text was generated using [employer] dictation system, please disregard any oddities of phrase or misspellings. Lab Data Lab results reviewed: Yes I reviewed the patient's lab results. Labs: Laboratory Tests Range/Units 06/07/25 13:34 Uric Acid (3.5-7.2) mg/dL 6.2 PFSH All Active Problems (Updated 06/07/25 @ 13:42 by Deepti Austin NP) Gout of right foot (Acute) Medical History No significant past medical history Surgical History No significant past surgical history Social History Smoking/Tobacco Use Status: Current every day Tobacco Type: smokeless tobacco Smoking risk assessment performed?: Yes Alcohol Intake: current Alcohol Intake frequency: a few times a week Alcohol type: beer Drug use: Daily Substance use type: marijuana Housing: house Do you feel safe at home: Yes Do you feel safe in your relationship?: Yes
[2025-06-07] MEDS: Indomethacin 25 MG CAP 50 MG PO (12:50)
[2025-06-07 14:15] LABS: Uric Acid 6.2 mg/dL (3.5-7.2)
== END 2025-06-07 14:04 | disposition home or self-care (01) ==
PROVIDERS: Emergency Provider Registered Nurse Emergency; PCP Nurse Practitioner Family
DX: M10.9 Gout, unspecified (principal)
CPT/HCPCS: 99284; 99283; 73630; 84550